=== PATIENT | male | born 1965 | race Caucasian/White ===

== ENCOUNTER → 2016-11-25 | Outpatient (CLI) | payer MEDICAID ==
[2016-11-25 08:26] LABS: Basophils # (A) 0.1 k/uL (0-0.2); Basophils % (A) 1 %; CH 31.3; CHCM 35.2; Eosinophils # (A) 0.3 k/uL (0-0.7); Eosinophils % (A) 5 %; HCT 47.6 % (39.0-53.0); HDW 2.59; HGB 16.6 gm/dL (13.0-17.5); Luc # (Auto) 0.15; Luc % (Auto) 3; Lymphocytes # (A) 1.9 k/uL (1.0-4.8); Lymphocytes % (A) 32 %; MCHC 34.8 g/dL (31.0-37.0); MCV 89.3 fL (80.0-100.0); Mean Platelet Volume 5.9; Monocytes # (A) 0.3 k/uL (0-1.0); Monocytes % (A) 5 %; Neutrophils # (A) 3.2 k/uL (1.3-7.7); Neutrophils % (A) 55 %; RBC 5.34 m/uL (4.30-5.90); RDW 12.5 % (11.5-15.5); WBC 5.8 k/uL (3.8-10.6); WBC (Perox) 6.04
[2016-11-25 08:41] LABS: ALT 29 U/L (21-72); AST 24 U/L (17-59); Alkaline Phosphatase 88 U/L (38-126); Anion Gap 11 mmol/L; Blood Urea Nitrogen 18 mg/dL (9-20); Calcium 9.4 mg/dL (8.4-10.2); Carbon Dioxide 28 mmol/L (22-30); Chloride 105 mmol/L (98-107); Cholesterol 179 mg/dL (<200); Glucose 101 mg/dL (74-99); HDL Cholesterol 59 mg/dL (40-60); Non-African American GFR(MDRD) >60 (>60 ml/min/1.73 sqM); Potassium 4.6 mmol/L (3.5-5.1); Sodium 144 mmol/L (137-145); Total Bilirubin 0.8 mg/dL (0.2-1.3); Total Protein 7.5 g/dL (6.3-8.2); Triglycerides 104 mg/dL (<150)
[2016-11-25 08:47] LABS: Hemoglobin A1C 5.1 % (4.2-6.1)
== END | disposition home or self-care (01) ==
LOC: LABWHC1 08:08
PROVIDERS: ATTEND Nurse Practitioner Family
DX: I48.2 Chronic atrial fibrillation (principal)
CPT/HCPCS: 36415; 80053; 80061; 83036; 84439; 84443; 85025

== ENCOUNTER → 2016-11-25 | Outpatient (CLI) | payer MEDICAID ==
--- NOTE | 2016-11-25 12:31 | US ---
EXAMINATION TYPE: US abdomen comp/pelvis limited DATE OF EXAM: 11/25/2016 10:49 AM COMPARISON: NONE CLINICAL HISTORY: R30.0 Dysuria. History of kidney stones, hematuria, lower back pain, history or cho lecystectomy EXAM MEASUREMENTS: Liver Length: 13.7 cm Gallbladder Wall: surgically absent CBD: 0.4 cm Spleen: 12.1 cm Right Kidney: 11.3 x 5.7 x 5.7 cm Left Kidney: 11.4 x 6.7 x 5.8 cm Pancreas: obscured by overlying midline bowel gas Liver: slightly course echogenicity Gallbladder: surgically absent CBD: visualized portions wnl, partially obscured by overlying bowel gas Spleen: visualized portions wnl, limited by rib shadowing and overlying bowel gas Right Kidney: visualized portions wnl, limited by rib shadowing and overlying bowel gas Left Kidney: multiple small echogenic foci throughout, 3.0 x 2.6 x 2.4cm hypoechoic area superior po le Upper IVC: wnl Abd Aorta: visualized portions wnl, partially obscured by overlying midline bowel gas Bladder: wnl Bilateral Jets Seen yes IMPRESSION: 1. Exam is limited by bowel gas. 2. Left renal calculi are identified. There is a superior pole left renal cyst.
== END | disposition home or self-care (01) ==
LOC: RADUSWWP 10:00
PROVIDERS: ATTEND Internal Medicine
DX: N20.0 Calculus of kidney (principal); N28.1 Cyst of kidney, acquired
CPT/HCPCS: 36415; 76700; 76857; 80053; 80061; 83036; 84439; 84443; 85025

== ENCOUNTER → 2016-12-12 | Outpatient (CLI) | payer MEDICAID ==
--- NOTE | 2016-12-12 10:42 | XR ---
EXAMINATION TYPE: XR IVP DATE OF EXAM ORDERED: 12/12/2016 HISTORY: J28.1 acquired renal cyst. COMPARISON: None. TECHNIQUE: The patient was injected with 100 cc of Omnipaque 350. FINDINGS: There is a 5.4 mm linear density overlying the lower pole left kidney. There is a 3 mm den sity overlying the upper pole of the right kidney. These may represent renal calculi. Following intravenous administration of contrast, there is bilateral excretion. The kidneys are dolores l in size, shape, position and axis. Both the intrarenal and extrarenal collecting systems are visual ized are unremarkable. The bladder is unremarkable. The patient weighs well with good drainage of the collecting systems bilaterally. IMPRESSION: 1. I CANNOT EXCLUDE TINY, BILATERAL RENAL CALCULI. 2. NORMAL IVP.
== END | disposition home or self-care (01) ==
LOC: RADFLMAIN 08:57
PROVIDERS: ATTEND Internal Medicine
DX: N28.1 Cyst of kidney, acquired (principal); N20.2 Calculus of kidney with calculus of ureter
CPT/HCPCS: 74400; Q9967

== ENCOUNTER 2017-04-24 05:40 | Emergency (ER) | payer MEDICAID ==
[2017-04-24 05:53] VITALS: TEMP 97.8
[2017-04-24] MEDS ORDERED: SODIUM CHLORIDE 0.9% 1,000 ML IV STA (05:54)
[2017-04-24] MEDS ORDERED: ONDANSETRON 4 MG/2 ML VIAL IVP STA (05:54)
[2017-04-24] MEDS ORDERED: KETOROLAC 30 MG/ML 1 ML VIAL IVP STA (05:54)
[2017-04-24] MEDS ORDERED: HYDROmorphone 1 MG/ML 1 ML SYRINGE IVP STA (05:54)
--- NOTE | 2017-04-24 05:56 | ED ---
General Adult HPI - General Source: patient, RN notes reviewed Mode of arrival: ambulatory Limitations: no limitations <Neo Briceño - Last Filed: 04/24/17 06:34> <Benitez Larkin - Last Filed: 04/24/17 07:26> - General Chief complaint: Back Pain/Injury Stated complaint: kidney stones Time Seen by Provider: 04/24/17 05:40 - History of Present Illness Initial comments: This is a 51-year-old male who presents emergency department with past history is significant for kidney stones atrial fibrillation and sick cholesterol. Patient comes in today because he is had about 2 hours of right back pain and right flank pain. Patient states it's very reminiscent of his previous kidney stone pain. Patient states she's nauseated and had some dry heaves earlier. Patient denies any radiation of the pain to the abdomen with the groin. Patient denies any hematuria or urinary frequency or urgency. Patient denies any fever chills. Patient denies any injury to his lower back. Patient states that movement does not make it worse. (Neo Briceño) - Related Data Previous Rx's Medication Instructions Recorded HYDROcodone/APAP 5-325MG [[place] 1 tab PO Q6HR PRN #12 tab 04/24/17 5-325] Ibuprofen [Motrin] 600 mg PO Q8HR PRN #24 tab 04/24/17 Ondansetron Odt [Zofran Odt] 4 mg PO Q8HR PRN #10 tab 04/24/17 Allergies Allergy/AdvReac Type Severity Reaction Status Date / Time No Known Allergies Allergy Verified 04/24/17 05:53 Review of Systems ROS Other: All systems not noted in ROS Statement are negative. <Neo Briceño - Last Filed: 04/24/17 06:34> ROS Other: All systems not noted in ROS Statement are negative. <Benitez Larkin - Last Filed: 04/24/17 07:26> ROS Statement: Those systems with pertinent positive or pertinent negative responses have been documented in the HPI. Past Medical History Past Medical History: Atrial Fibrillation, Hyperlipidemia Additional Past Medical History / Comment(s): diverticulosis History of Any Multi-Drug Resistant Organisms: None Reported Past Surgical History: Cholecystectomy Past Psychological History: Anxiety Smoking Status: Current every day smoker Past Alcohol Use History: Occasional Past Drug Use History: None Reported <Neo Briceño - Last Filed: 04/24/17 06:34> General Exam Limitations: no limitations <Neo Briceño - Last Filed: 04/24/17 06:34> <Benitez Larkin - Last Filed: 04/24/17 07:26> - General Exam Comments Initial Comments: GENERAL: Patient is well-developed and well-nourished. Patient is nontoxic and well- hydrated and is in moderate distress. ENT: Oropharynx is clear. Moist mucous membranes. EYES: The sclera were anicteric and conjunctiva were pink and moist. Extraocular movements were intact and pupils were equal round and reactive to light. Eyelids were unremarkable. PULMONARY: Unlabored respirations. Good breath sounds bilaterally. No audible rales rhonchi or wheezing was noted. CARDIOVASCULAR: There is a regular rate and rhythm without any murmurs gallops or rubs. ABDOMEN: Soft and nontender with normal bowel sounds. No palpable organomegaly was noted. There is no palpable pulsatile mass. SKIN: Skin is clear with no lesions or rashes and otherwise unremarkable. NEUROLOGIC: Patient is alert and oriented x3. Cranial nerves II through XII are grossly intact. Motor and sensory are also intact. Normal speech, volume and content. Symmetrical smile. MUSCULOSKELETAL: Normal extremities with adequate strength and full range of motion. LYMPHATICS: No significant lymphadenopathy is noted PSYCHIATRIC: Normal psychiatric evaluation. (Neo Briceño) Medical Decision Making - Lab Data Result diagrams: 04/24/17 05:51 04/24/17 05:51 <Neo Briceño - Last Filed: 04/24/17 06:34> - Lab Data Result diagrams: 04/24/17 05:51 04/24/17 05:51 <Benitez Larkin - Last Filed: 04/24/17 07:26> - Medical Decision Making Dr. Larkin will be taking over the care of this patient at 7 AM (Neo Briceño) Patient's care was signed out at shift change, awaiting CT results. I did reevaluate the patient at sign out. He was having right flank pain radiating to the groin. This is typical of his previous kidney stones. CT shows 2.7 mm renal stone in the distal ureter with mild right hydro-nephrolithiasis. On reevaluation patient is pain-free. He will be given a prescription for pain medication and patient does state he has Flomax at home. He is given a urine strainer. He will follow-up with urology. (Benitez Larkin) - Lab Data Lab Results 04/24/17 04/24/17 04/24/17 Range/Units 05:51 05:51 06:00 WBC 6.3 (3.8-10.6) k/uL RBC 5.19 (4.30-5.90) m/uL Hgb 16.1 (13.0-17.5) gm/dL Hct 45.8 (39.0-53.0) % MCV 88.1 (80.0-100.0) fL MCH 31.0 (25.0-35.0) pg MCHC 35.1 (31.0-37.0) g/dL RDW 12.1 (11.5-15.5) % Plt Count 263 (150-450) k/uL Neutrophils % 57 % Lymphocytes % 29 % Monocytes % 6 % Eosinophils % 4 % Basophils % 1 % Neutrophils # 3.6 (1.3-7.7) k/uL Lymphocytes # 1.8 (1.0-4.8) k/uL Monocytes # 0.4 (0-1.0) k/uL Eosinophils # 0.3 (0-0.7) k/uL Basophils # 0.0 (0-0.2) k/uL Sodium 141 (137-145) mmol/L Potassium 4.2 (3.5-5.1) mmol/L Chloride 105 (98-107) mmol/L Carbon Dioxide 22 (22-30) mmol/L Anion Gap 14 mmol/L BUN 16 (9-20) mg/dL Creatinine 0.82 (0.66-1.25) mg/dL Est GFR (MDRD) Af Amer >60 (>60 ml/min/1.73 sqM) Est GFR (MDRD) Non-Af >60 (>60 ml/min/1.73 sqM) Glucose 97 (74-99) mg/dL Calcium 9.7 (8.4-10.2) mg/dL Total Bilirubin 0.6 (0.2-1.3) mg/dL AST 26 (17-59) U/L ALT 37 (21-72) U/L Alkaline Phosphatase 84 (38-126) U/L Total Protein 7.4 (6.3-8.2) g/dL Albumin 4.5 (3.5-5.0) g/dL Amylase 42 (30-110) U/L Lipase 127 (23-300) U/L Urine Color Yellow Urine Appearance Clear (Clear) Urine pH 5.5 (5.0-8.0) Ur Specific [place] 1.019 (1.001-1.035) Urine Protein 1+ H (Negative) Urine Glucose (UA) Negative (Negative) Urine Ketones 1+ H (Negative) Urine Blood Large H (Negative) Urine Nitrite Negative (Negative) Urine Bilirubin Negative (Negative) Urine Urobilinogen <2.0 (<2.0) mg/dL Ur Leukocyte Esterase Negative (Negative) Urine RBC >182 H (0-5) /hpf Urine WBC <1 (0-5) /hpf Hyaline Casts 5 H (0-2) /lpf Urine Mucus Few H (None) /hpf Urine Yeast (Budding) Moderate H (None) /hpf Disposition <Neo Briceño - Last Filed: 04/24/17 06:34> <Benitez Larkin - Last Filed: 04/24/17 07:26> Clinical Impression: Renal stone, Renal colic, Renal stone Disposition: HOME SELF-CARE Condition: Good Instructions: Kidney Stones (ED) Prescriptions: HYDROcodone/APAP 5-325MG [[place] 5-325] 1 tab PO Q6HR PRN #12 tab PRN Reason: Pain Ibuprofen [Motrin] 600 mg PO Q8HR PRN #24 tab PRN Reason: Pain Ondansetron Odt [Zofran Odt] 4 mg PO Q8HR PRN #10 tab PRN Reason: Vomiting Referrals: Linus Valadez MD [Primary Care Provider] - 1-2 days Kayode Pardo MD [STAFF PHYSICIAN] - 1-2 days
[2017-04-24 06:05] LABS: Basophils % (A) 1 %; CH 31.4; CHCM 35.7; Eosinophils # (A) 0.3 k/uL (0-0.7); Eosinophils % (A) 4 %; HCT 45.8 % (39.0-53.0); HDW 2.64; HGB 16.1 gm/dL (13.0-17.5); Luc # (Auto) 0.19; Luc % (Auto) 3; Lymphocytes # (A) 1.8 k/uL (1.0-4.8); Lymphocytes % (A) 29 %; MCHC 35.1 g/dL (31.0-37.0); MCV 88.1 fL (80.0-100.0); Mean Platelet Volume 6.1; Monocytes # (A) 0.4 k/uL (0-1.0); Monocytes % (A) 6 %; Neutrophils # (A) 3.6 k/uL (1.3-7.7); Neutrophils % (A) 57 %; RBC 5.19 m/uL (4.30-5.90); RDW 12.1 % (11.5-15.5); WBC 6.3 k/uL (3.8-10.6); WBC (Perox) 5.86
[2017-04-24 06:12] LABS: ALT 37 U/L (21-72); AST 26 U/L (17-59); Alkaline Phosphatase 84 U/L (38-126); Amylase 42 U/L (30-110); Anion Gap 14 mmol/L; Blood Urea Nitrogen 16 mg/dL (9-20); Calcium 9.7 mg/dL (8.4-10.2); Carbon Dioxide 22 mmol/L (22-30); Chloride 105 mmol/L (98-107); Glucose 97 mg/dL (74-99); Non-African American GFR(MDRD) >60 (>60 ml/min/1.73 sqM); Potassium 4.2 mmol/L (3.5-5.1); Sodium 141 mmol/L (137-145); Total Bilirubin 0.6 mg/dL (0.2-1.3); Total Protein 7.4 g/dL (6.3-8.2)
[2017-04-24 06:13] LABS: Appearance,Urine Clear (Clear); Bilirubin,Urine Negative (Negative); Glucose,Urine (UA) Negative (Negative); Ketones,Urine 1+ (Negative); Leukocyte Esterase,Urine Negative (Negative); Mucus,Urine Few /hpf; Nitrite,Urine Negative (Negative); PH, Urine 5.5 (5.0-8.0); Particle Count 6443; Protein,Urine 1+ (Negative); RBC,Urine >182 /hpf (0-5); Specific Gravity,Urine 1.019 (1.001-1.035); UA Billing (MACRO vs. MICRO) MICRO; Urobilinogen,Urine <2.0 mg/dL (<2.0); WBC,Urine <1 /hpf (0-5)
[2017-04-24 06:56] VITALS: BP 133/69; PULSE 78; RESP 18
--- NOTE | 2017-04-24 07:07 | XR ---
EXAM: XR Abdomen Complete, 1 View CLINICAL HISTORY: Reason: abdominal pain TECHNIQUE: Upright views of the abdomen/pelvis. COMPARISON: CT abdomen and pelvis performed concurrently. US dated 11/25/16 FINDINGS: Intraperitoneal space: No free air. Gastrointestinal tract: Unremarkable. No dilation. Organs: Cholecystectomy clips. Bones/joints: Unremarkable. Other findings: Right distal ureteral calculus is better seen on CT scan. IMPRESSION: Right distal ureteral calculus is better seen on CT scan.
--- NOTE | 2017-04-24 07:17 | CT ---
EXAM: CT Abdomen and Pelvis Without Intravenous Contrast CLINICAL HISTORY: Reason: abdominal pain TECHNIQUE: Axial computed tomography images of the abdomen and pelvis without intravenous contrast. DLP is 429 mGy-cm. This CT exam was performed using one or more of the following dose reduction techniques: automated exposure control, adjustment of the mA and/or kV according to patient size, and/or use of iterative reconstruction technique. Coronal and sagittal reformatted images were created and reviewed. COMPARISON: KUB performed concurrently. US dated 11/25/16 FINDINGS: Lower thorax: No acute findings. ABDOMEN: Liver: Unremarkable. Gallbladder and bile ducts: Cholecystectomy. No ductal dilation. Pancreas: Unremarkable. No ductal dilation. Spleen: Unremarkable. No splenomegaly. Adrenals: Unremarkable. No mass. Kidneys and ureters: Mild right hydroureteronephrosis with a distal 2. 7 mm calculus. Additional left renal 1.4 mm calculus. Left renal 3.2 cm cyst. Stomach and bowel: Scattered colonic diverticula without diverticulitis. No obstruction. Appendix: No findings to suggest acute appendicitis. PELVIS: Bladder: Unremarkable. No stones. Reproductive: Unremarkable as visualized. ABDOMEN and PELVIS: Intraperitoneal space: Unremarkable. No free air. No significant fluid collection. Bones/joints: Disc disease of L5/S1. No acute fracture. No dislocation. Soft tissues: Unremarkable. Vasculature: Unremarkable. No abdominal aortic aneurysm. Lymph nodes: Unremarkable. No enlarged lymph nodes. IMPRESSION: 1. Mild right hydroureteronephrosis with a distal 2.7 mm calculus. 2. Additional left renal 1.4 mm calculus. Left renal 3.2 cm cyst. 3. Scattered colonic diverticula without diverticulitis.
== END 2017-04-24 07:30 | disposition home or self-care (01) ==
LOC: EC 05:40
DX: N20.0 Calculus of kidney (principal); R11.2 Nausea with vomiting, unspecified; M54.9 Dorsalgia, unspecified; F17.200 Nicotine dependence, unspecified, uncomplicated; Z90.49 Acquired absence of other specified parts of digestive tract
CPT/HCPCS: 99284 ×2; 96374 ×2; 96375 ×3; 96361 ×2; 36415; 80053; 82150; 83690; 85025; 81001; 74000; 74176; J2405; J1885; J1170

== ENCOUNTER 2017-05-02 08:39 | Emergency (ER) | payer MEDICAID ==
[2017-05-02] MEDS ORDERED: SODIUM CHLORIDE 0.9% 1,000 ML IV STA (08:59)
[2017-05-02] MEDS ORDERED: ONDANSETRON 4 MG/2 ML VIAL IVP STA (08:59)
[2017-05-02] MEDS ORDERED: KETOROLAC 30 MG/ML 1 ML VIAL IVP STA (08:59)
[2017-05-02 09:25] LABS: Basophils % (A) 0 %; CH 32.9; CHCM 35.9; Eosinophils # (A) 0.1 k/uL (0-0.7); Eosinophils % (A) 1 %; HCT 45.9 % (39.0-53.0); HDW 2.54; HGB 15.1 gm/dL (13.0-17.5); Luc # (Auto) 0.23; Luc % (Auto) 3; Lymphocytes # (A) 1.4 k/uL (1.0-4.8); Lymphocytes % (A) 17 %; MCH 30.4 pg (25.0-35.0); MCHC 32.9 g/dL (31.0-37.0); MCV 92.3 fL (80.0-100.0); Mean Platelet Volume 6.7; Monocytes # (A) 0.7 k/uL (0-1.0); Monocytes % (A) 8 %; Neutrophils % (A) 71 %; RBC 4.98 m/uL (4.30-5.90); RDW 13.4 % (11.5-15.5); WBC 8.5 k/uL (3.8-10.6); WBC (Perox) 8.57
[2017-05-02 09:33] LABS: Appearance,Urine Clear (Clear); Bilirubin,Urine Negative (Negative); Glucose,Urine (UA) Negative (Negative); Ketones,Urine Negative (Negative); Leukocyte Esterase,Urine Negative (Negative); Mucus,Urine Rare /hpf; Nitrite,Urine Negative (Negative); Particle Count 786; Protein,Urine Negative (Negative); RBC,Urine 2 /hpf (0-5); Specific Gravity,Urine 1.008 (1.001-1.035); UA Billing (MACRO vs. MICRO) MICRO; Urobilinogen,Urine <2.0 mg/dL (<2.0); WBC,Urine 2 /hpf (0-5)
[2017-05-02 09:43] LABS: ALT 35 U/L (21-72); AST 26 U/L (17-59); Alkaline Phosphatase 77 U/L (38-126); Anion Gap 12 mmol/L; Blood Urea Nitrogen 13 mg/dL (9-20); Calcium 9.2 mg/dL (8.4-10.2); Carbon Dioxide 26 mmol/L (22-30); Chloride 100 mmol/L (98-107); Glucose 98 mg/dL (74-99); Non-African American GFR(MDRD) >60 (>60 ml/min/1.73 sqM); Potassium 3.8 mmol/L (3.5-5.1); Sodium 138 mmol/L (137-145); Total Bilirubin 0.7 mg/dL (0.2-1.3); Total Protein 6.9 g/dL (6.3-8.2)
--- NOTE | 2017-05-02 10:14 | US ---
EXAMINATION TYPE: US kidneys/renal and bladder DATE OF EXAM: 05/02/2017 COMPARISON: CT abdomen and pelvis April 24, 2017 CLINICAL HISTORY: Pain. EXAM MEASUREMENTS: Right Kidney: 13.4 x 6.0 x 6.2 cm Left Kidney: 11.9 x 6.0 x 5.3 cm Right Kidney: Left Kidney: There is hypoechoic anechoic oval 4.3 x 2.8 cm lesion centrally left kidney corresponds to simple appearing cyst upper to mid pole level on recent CT. There is 4 mm hyperechoic focus marke d by technologist, no corresponding calculus is seen on CT. Vascular calcification lower pole level i s present. Bladder: Poorly distended and thus suboptimally evaluated. Bilateral Jets seen: No There is no evidence for hydronephrosis at this point in time. No nephrolithiasis is seen. No suspi cious new solid or cystic masses are identified. IMPRESSION: No hydronephrosis or significant new finding is seen to account for patient's symptoms.
--- NOTE | 2017-05-02 10:20 | ED ---
General Adult HPI - General Chief complaint: Urogenital Stated complaint: Poss Kidney Stones, Abd Pain Time Seen by Provider: 05/02/17 08:54 Source: patient, RN notes reviewed Mode of arrival: ambulatory Limitations: no limitations - History of Present Illness Initial comments: 51 yo male presents to the ER with cc of right sided flank pain. At this time the patient was diagnosed by CT with ureteral calculi a few days ago. He states he was doing well he was not using anything but Motrin for pain at home and then last and it flared up. Patient states he has noticed that increased urgency to eat. Patient states he did have some nausea no vomiting. He was concerned due to the pain returning the fact he could not break it with the [place] home so he thought that he should be evaluated. Patient states is not currently having any other symptoms at this time. Patient denies any recent fever, chills, shortness of breath, chest pain, back pain, abdominal pain, nausea vomiting, numbness or tingling, dysuria or hematuria, constipation or diarrhea, headaches or visual changes, or any other current symptoms. - Related Data Home Medications Medication Instructions Recorded Confirmed Atenolol [Tenormin] 12.5 mg PO DAILY 04/24/17 05/02/17 Sertraline [Zoloft] 25 mg PO DAILY 04/24/17 05/02/17 Atorvastatin Calcium [Lipitor] 40 mg PO HS 05/02/17 05/02/17 Tamsulosin [Flomax] 0.4 mg PO ONCE 05/02/17 05/02/17 Previous Rx's Medication Instructions Recorded HYDROcodone/APAP 5-325MG [[place] 1 tab PO Q6HR PRN #12 tab 04/24/17 5-325] Ibuprofen [Motrin] 600 mg PO Q8HR PRN #24 tab 04/24/17 Ondansetron Odt [Zofran Odt] 4 mg PO Q8HR PRN #10 tab 04/24/17 Allergies Allergy/AdvReac Type Severity Reaction Status Date / Time No Known Allergies Allergy Verified 05/02/17 09:18 Review of Systems ROS Statement: Those systems with pertinent positive or pertinent negative responses have been documented in the HPI. ROS Other: All systems not noted in ROS Statement are negative. Past Medical History Past Medical History: Atrial Fibrillation, Hyperlipidemia Additional Past Medical History / Comment(s): diverticulosis, kidney stones History of Any Multi-Drug Resistant Organisms: None Reported Past Surgical History: Cholecystectomy Past Psychological History: Anxiety Smoking Status: Never smoker Past Alcohol Use History: Occasional Past Drug Use History: None Reported General Exam - General Exam Comments Initial Comments: General: The patient is awake and alert, in no distress, and does not appear acutely ill. Eye: Pupils are equal, round and reactive to light, extra-ocular movements are intact; there is normal conjunctiva bilaterally. No signs of icterus. Ears, nose, mouth and throat: There are moist mucous membranes and no oral lesions. Neck: The neck is supple, there is no tenderness. Cardiovascular: There is a regular rate and rhythm. No murmur, rub or gallop is appreciated. Respiratory: Lungs are clear to auscultation, respirations are non-labored, breath sounds are equal. No wheezes, stridor, rales, or rhonchi. Gastrointestinal: Soft, non-distended, non-tender abdomen without masses or organomegaly noted. There is no rebound or guarding present. No CVA tenderness. Bowel sounds are unremarkable. Back: There is no tenderness to palpation in the midline. There is no obvious deformity. No rashes noted. Musculoskeletal: Normal ROM, no tenderness, There is no pedal edema. There is no calf tenderness or swelling. Sensation intact. Pulses equal bilaterally 2+. Neurological: CN II-XII intact, There are no obvious motor or sensory deficits. Coordination appears grossly intact. Speech is normal. Skin: Skin is warm and dry and no rashes or lesions are noted. Psychiatric: Cooperative, appropriate mood & affect, normal judgment. Limitations: no limitations Course Vital Signs 05/02/17 08:47 Temperature 96.9 F L Pulse Rate 71 Respiratory 18 Rate Blood Pressure 177/108 O2 Sat by Pulse 100 Oximetry Medical Decision Making - Medical Decision Making 51-year-old male presents emergency Department chief complaint flank pain. This time ultrasound reviewed and lab work is stable. This time we discussed most likely continued pain from his recent calculi. This time patient will be discharged home. We discussed follow-up return parameters. Patient stated he understood and all questions have been answered. He'll be discharged home. - Lab Data Result diagrams: 05/02/17 09:15 05/02/17 09:15 Lab Results 05/02/17 05/02/17 05/02/17 Range/Units 09:15 09:15 09:15 WBC 8.5 (3.8-10.6) k/uL RBC 4.98 (4.30-5.90) m/uL Hgb 15.1 (13.0-17.5) gm/dL Hct 45.9 (39.0-53.0) % MCV 92.3 (80.0-100.0) fL MCH 30.4 (25.0-35.0) pg MCHC 32.9 (31.0-37.0) g/dL RDW 13.4 (11.5-15.5) % Plt Count 265 (150-450) k/uL Neutrophils % 71 % Lymphocytes % 17 % Monocytes % 8 % Eosinophils % 1 % Basophils % 0 % Neutrophils # 6.0 (1.3-7.7) k/uL Lymphocytes # 1.4 (1.0-4.8) k/uL Monocytes # 0.7 (0-1.0) k/uL Eosinophils # 0.1 (0-0.7) k/uL Basophils # 0.0 (0-0.2) k/uL Sodium 138 (137-145) mmol/L Potassium 3.8 (3.5-5.1) mmol/L Chloride 100 (98-107) mmol/L Carbon Dioxide 26 (22-30) mmol/L Anion Gap 12 mmol/L BUN 13 (9-20) mg/dL Creatinine 1.14 (0.66-1.25) mg/dL Est GFR (MDRD) Af Amer >60 (>60 ml/min/1.73 sqM) Est GFR (MDRD) Non-Af >60 (>60 ml/min/1.73 sqM) Glucose 98 (74-99) mg/dL Calcium 9.2 (8.4-10.2) mg/dL Total Bilirubin 0.7 (0.2-1.3) mg/dL AST 26 (17-59) U/L ALT 35 (21-72) U/L Alkaline Phosphatase 77 (38-126) U/L Total Protein 6.9 (6.3-8.2) g/dL Albumin 4.3 (3.5-5.0) g/dL Urine Color Yellow Urine Appearance Clear (Clear) Urine pH 6.0 (5.0-8.0) Ur Specific [place] 1.008 (1.001-1.035) Urine Protein Negative (Negative) Urine Glucose (UA) Negative (Negative) Urine Ketones Negative (Negative) Urine Blood Small H (Negative) Urine Nitrite Negative (Negative) Urine Bilirubin Negative (Negative) Urine Urobilinogen <2.0 (<2.0) mg/dL Ur Leukocyte Esterase Negative (Negative) Urine RBC 2 (0-5) /hpf Urine WBC 2 (0-5) /hpf Urine Mucus Rare H (None) /hpf - Radiology Data Radiology results: report reviewed, image reviewed Disposition Clinical Impression: Right flank pain Disposition: HOME SELF-CARE Condition: Stable Instructions: Kidney Stones (ED) Additional Instructions: Please use medication as discussed. Please follow up with family doctor if symptoms have not improved over the next two days. Please return to the emergency room if your symptoms increase or worsen or for any other concerns. Referrals: Linus Valadez MD [Primary Care Provider] - 1-2 days Khai Frye MD [STAFF PHYSICIAN] - 1-2 days Time of Disposition: 10:31
[2017-05-02 10:27] VITALS: BP 136/93; PULSE 61; RESP 16; TEMP 97.9
== END 2017-05-02 10:44 | disposition home or self-care (01) ==
LOC: EC 08:39
DX: R10.9 Unspecified abdominal pain (principal); R11.0 Nausea; I48.91 Unspecified atrial fibrillation; E78.5 Hyperlipidemia, unspecified; F41.9 Anxiety disorder, unspecified; Z79.899 Other long term (current) drug therapy; Z90.49 Acquired absence of other specified parts of digestive tract
CPT/HCPCS: 36415; 80053; 85025; 81001; 87086; 76770; 99284; 96374; 96375; 96361 ×2; J2405; J1885

== ENCOUNTER → 2017-06-06 | Outpatient (CLI) | payer MEDICAID ==
--- NOTE | 2017-06-06 11:48 | XR ---
EXAMINATION TYPE: XR hand complete RT DATE OF EXAM: 06/06/2017 CLINICAL HISTORY: pain TECHNIQUE: Frontal, lateral and oblique images of the right hand are obtained. COMPARISON: None. FINDINGS: There is no acute fracture/dislocation evident. The joint spaces appear within normal limi ts. The overlying soft tissue appears unremarkable. IMPRESSION: There is no acute fracture or dislocation ICD 10 NO FRACTURE, INITIAL EVALUATION
== END ==
LOC: RADXRMAIN 11:20
PROVIDERS: ATTEND Internal Medicine Geriatric Medicine
DX: M79.641 Pain in right hand (principal)

== ENCOUNTER → 2019-03-04 | Outpatient (CLI) | payer MEDICAID ==
[2019-03-04 12:52] LABS: Basophils # (A) 0.1 k/uL (0-0.2); Basophils % (A) 1 %; Eosinophils # (A) 0.3 k/uL (0-0.7); Eosinophils % (A) 5 %; HCT 45.2 % (39.0-53.0); HGB 15.6 gm/dL (13.0-17.5); Lymphocytes # (A) 1.7 k/uL (1.0-4.8); Lymphocytes % (A) 28 %; MCH 30.9 pg (25.0-35.0); MCHC 34.6 g/dL (31.0-37.0); MCV 89.3 fL (80.0-100.0); Mean Platelet Volume 6.3; Monocytes # (A) 0.4 k/uL (0-1.0); Monocytes % (A) 6 %; Neutrophils # (A) 3.5 k/uL (1.3-7.7); Neutrophils % (A) 58 %; Platelet Count 256 k/uL (150-450); RBC 5.06 m/uL (4.30-5.90); RDW 13.8 % (11.5-15.5); WBC 6.1 k/uL (3.8-10.6)
[2019-03-04 13:01] LABS: Appearance,Urine Clear (Clear); Bilirubin,Urine Negative (Negative); Blood,Urine Negative (Negative); Color,Urine Light Yellow; Glucose,Urine (UA) Negative (Negative); Ketones,Urine Negative (Negative); Leukocyte Esterase,Urine Negative (Negative); Nitrite,Urine Negative (Negative); Protein,Urine Negative (Negative); Specific Gravity,Urine 1.007 (1.001-1.035); Urobilinogen,Urine <2.0 mg/dL (<2.0)
[2019-03-04 18:54] LABS: African American GFR (CKD) 119.9 (60.0-200.0); Albumin 4.5 g/dL (3.80-4.90); Albumin/Globulin Ratio 2.5 (1.60-3.17); Anion Gap 8.4 mmol/L (4.00-12.00); BUN/Creat Ratio 18.75 Ratio (12.00-20.00); Calcium 9.2 mg/dL (8.7-10.3); Carbon Dioxide 28.6 mmol/L (21.6-31.8); Chol/HDL Ratio 2.77; Globulin 1.8 g/dL (1.6-3.3); Potassium 4.4 mmol/L (3.5-5.5); Total Bilirubin 0.7 mg/dL (0.2-1.2); Total Protein 6.3 g/dL (6.2-8.2); Uric Acid 4.9 mg/dL (3.7-8.7)
== END | disposition home or self-care (01) ==
LOC: LABWHC1 11:46
PROVIDERS: ATTEND Internal Medicine
DX: I10 Essential (primary) hypertension (principal); N40.1 Benign prostatic hyperplasia with lower urinary tract symptoms; E78.2 Mixed hyperlipidemia; F32.9 Major depressive disorder, single episode, unspecified
CPT/HCPCS: 36415; 80053; 80061; 81003; 82550; 83036; 84153; 84439; 84443; 84550; 85025

== ENCOUNTER 2019-05-02 09:49 | Observation (INO) | payer MEDICAID ==
[2019-05-02] MEDS ORDERED: ASPIRIN 81 MG PO STA (10:04)
--- NOTE | 2019-05-02 10:09 | ED ---
Chest Pain HPI - General Source: patient Mode of arrival: ambulatory <Zachary Zayas - Last Filed: 05/02/19 12:03> <Yaima Clarke - Last Filed: 05/07/19 13:06> - General Chief Complaint: Chest Pain Stated Complaint: Chest Pain Time Seen by Provider: 05/02/19 09:56 - History of Present Illness Initial Comments: Patient is a 53-year-old male with history of A. fib is presenting to emergency Department with a chief complaint of chest pain. Patient reports he developed substernal, dull chest pain yesterday appeared to be going away after he ate. Patient reports he woke up this morning and the pain has reappeared and is now radiating to his jaw. Patient also reports left arm pain however he states that has been ongoing for the past several months. Patient does have nausea yesterday but that has since resolved. Patient denies any episodes of diaphoresis. Patient denies shortness of breath or dyspnea on exertion. Patient reports he had an EKG done at his primary care about 2 months ago and it was unremarkable. Patient denies hypertension but does report hypercholesterolemia which is currently treated with medication. Patient does take atenolol for the A. fib. Patient does have a strong family history of early heart attacks. (Zachary Zayas) - Related Data Home Medications Medication Instructions Recorded Confirmed Sertraline [Zoloft] 25 mg PO DAILY 04/24/17 05/02/19 Atorvastatin Calcium [Lipitor] 40 mg PO DAILY 05/02/17 05/02/19 Previous Rx's Medication Instructions Recorded Metoprolol Succinate (ER) [Toprol 12.5 mg PO DAILY #30 tab.er.24h 05/03/19 XL] Allergies Allergy/AdvReac Type Severity Reaction Status Date / Time No Known Allergies Allergy Verified 05/02/19 10:44 Review of Systems ROS Other: All systems not noted in ROS Statement are negative. <Zachary Zayas - Last Filed: 05/02/19 12:03> ROS Other: All systems not noted in ROS Statement are negative. <Yaima Clarke - Last Filed: 05/07/19 13:06> ROS Statement: Those systems with pertinent positive or pertinent negative responses have been documented in the HPI. EKG Findings - EKG Comments: EKG Findings:: Normal sinus rhythm, no ST elevations. Ventricular rate 73, NJ interval 154, QRS duration 88, QT/QTC 390/429. <Zachary Zayas - Last Filed: 05/02/19 12:03> Past Medical History Past Medical History: Atrial Fibrillation, Hyperlipidemia Additional Past Medical History / Comment(s): diverticulosis, kidney stones History of Any Multi-Drug Resistant Organisms: None Reported Past Surgical History: Cholecystectomy Past Psychological History: Anxiety Smoking Status: Never smoker Past Alcohol Use History: Occasional Past Drug Use History: None Reported <Zachary Zayas - Last Filed: 05/02/19 12:03> General Exam Limitations: no limitations General appearance: alert, in no apparent distress Head exam: Present: atraumatic, normocephalic, normal inspection Eye exam: Present: normal appearance, PERRL, EOMI Pupils: Present: normal accommodation ENT exam: Present: normal exam, normal oropharynx, mucous membranes moist, TM's normal bilaterally, normal external ear exam Neck exam: Present: normal inspection, full ROM. Absent: tenderness Respiratory exam: Present: normal lung sounds bilaterally. Absent: chest wall tenderness Cardiovascular Exam: Present: regular rate, normal rhythm, normal heart sounds Extremities exam: Present: normal inspection, full ROM Back exam: Present: normal inspection, full ROM Neurological exam: Present: alert, oriented X3 Psychiatric exam: Present: normal affect, normal mood Skin exam: Present: warm, intact, normal color <Zachary Zayas - Last Filed: 05/02/19 12:03> Course Vital Signs 05/02/19 05/02/19 05/02/19 09:54 10:00 10:11 Temperature 97.7 F Pulse Rate 85 76 Pulse Rate [ 87 [employer] Can [employer]or ] Respiratory 20 13 Rate Blood Pressure 136/99 O2 Sat by Pulse 99 Oximetry 05/02/19 05/02/19 05/02/19 10:28 11:00 12:01 Temperature Pulse Rate 76 70 70 Pulse Rate [ [employer] ] Respiratory 16 8 L 13 Rate Blood Pressure 137/102 151/92 139/101 O2 Sat by Pulse 99 93 L Oximetry 05/02/19 13:00 Temperature Pulse Rate 68 Pulse Rate [ [employer]or ] Respiratory 7 L Rate Blood Pressure 136/95 O2 Sat by Pulse 95 Oximetry Chest Pain MDM - Differential Diagnosis ACS, Pleurisy-Other - Wells Criteria Clinical Symptoms of DVT: (0) No No Alternative Diagnosis: (0) No Immobilization of Surgery in Previous 4 Weeks: (0) No Hemoptysis: (0) No Malignancy: (0) No <Zachary Zayas - Last Filed: 05/02/19 12:03> <Yaima Clarke - Last Filed: 05/07/19 13:06> - [facility] Patient is a 53-year-old male with history of A. fib is presenting to the emergency department with a chief complaint of chest pain. Patient had developed chest pain yesterday that resolved however did appear today again. It is a substernal pain and now radiates to the jaw. Initially patient denied nausea or vomiting however during his ED stay he did develop nausea. Patient was given antiemetics. EKG shows normal sinus rhythm. Initial troponins are negative. The rest of the labs are unremarkable. Chest x-ray is negative for acute cardiopulmonary pathology. Patient has a heart score of 3. Considering the patient is not had any stress testing in over a decade and not see a hub borer for the last several years, elected to admit the patient for observation and serial troponins. Information was relayed to the patient and he is agreeable and understanding. Case discussed with Dr. Clarke. Admitted physician is . Cardiology consulted. (Zachary Zayas) I was available for consultation in the emergency department. The history and physical exam were done by the midlevel provider. I was consulted for this patients care. I reviewed the case with the midlevel provider and based on their presentation of the patient, I agree with the assessment, medical decision making and plan of care as documented. I saw the patient myself and discussed the case with Dr. Valadez. Chart was dictated using [employer] dictation software. Attempts were made to correct any dictation errors however some typographical errors may persist. (Yaima Clarke) Disposition Is patient prescribed a controlled substance at d/c from ED?: No Time of Disposition: 11:43 <Zachary Zayas - Last Filed: 05/02/19 12:03> <Yaima Clarke - Last Filed: 05/07/19 13:06> Clinical Impression: Chest pain Disposition: ADMITTED IP TO THIS HOSP Condition: Good
[2019-05-02] MEDS ORDERED: ONDANSETRON 4 MG/2 ML VIAL IVP STA (10:19)
[2019-05-02 10:37] LABS: Basophils % (A) 1 %; Eosinophils # (A) 0.2 k/uL (0-0.7); Eosinophils % (A) 4 %; HCT 44.9 % (39.0-53.0); Lymphocytes # (A) 1.8 k/uL (1.0-4.8); Lymphocytes % (A) 27 %; MCH 31.6 pg (25.0-35.0); MCHC 35.6 g/dL (31.0-37.0); MCV 88.8 fL (80.0-100.0); Mean Platelet Volume 5.2; Monocytes # (A) 0.3 k/uL (0-1.0); Monocytes % (A) 5 %; Neutrophils % (A) 60 %; Platelet Count 249 k/uL (150-450); RBC 5.05 m/uL (4.30-5.90); RDW 11.8 % (11.5-15.5); WBC 6.6 k/uL (3.8-10.6)
[2019-05-02 10:41] LABS: ALT 25 U/L (21-72); AST 23 U/L (17-59); African American GFR (CKD) >90 (>60 ml/min/1.73 sqM); Albumin 4.4 g/dL (3.5-5.0); Alkaline Phosphatase 79 U/L (38-126); Anion Gap 8 mmol/L; Blood Urea Nitrogen 16 mg/dL (9-20); Calcium 9.4 mg/dL (8.4-10.2); Carbon Dioxide 26 mmol/L (22-30); Chloride 106 mmol/L (98-107); Glucose 98 mg/dL (74-99); INR 0.9 (<1.2); Magnesium 1.9 mg/dL (1.6-2.3); Partial Thromboplastin Time 24.2 sec (22.0-30.0); Potassium 4.4 mmol/L (3.5-5.1); Prothrombin Time 10.2 sec (9.0-12.0); Sodium 140 mmol/L (137-145); Total Bilirubin 0.8 mg/dL (0.2-1.3); Total Protein 7.3 g/dL (6.3-8.2)
--- NOTE | 2019-05-02 10:41 | XR ---
EXAMINATION TYPE: XR chest 2V DATE OF EXAM: 05/02/2019 COMPARISON: 01/01/2009 HISTORY: Shortness of breath TECHNIQUE: Frontal and lateral views of the chest are obtained. FINDINGS: Scattered senescent parenchymal changes noted. Hyperinflation compatible with COPD. No evidence for infiltrate. No evidence for atelectasis. Heart size is stable. Mediastinal structures are stable and grossly unremarkable. No evidence for hilar prominence. Degenerative changes dorsal spine. IMPRESSION: 1. No evidence for acute pulmonary disease.
[2019-05-02] MEDS ORDERED: ONDANSETRON 4 MG/2 ML VIAL IVP PRN (12:35)
[2019-05-02] MEDS ORDERED: MORPHINE SULFATE 4 MG/ML SYRINGE IV PRN (12:35)
[2019-05-02] MEDS ORDERED: NALOXONE 0.4 MG/ML 1 ML VIAL IV PRN (12:35)
[2019-05-02] MEDS ORDERED: ACETAMINOPHEN TAB 325 MG TAB PO PRN (12:35)
[2019-05-02] MEDS ORDERED: ALPRAZolam 0.25 MG TAB PO PRN (12:35)
[2019-05-02] MEDS ORDERED: IBUPROFEN 400 MG TAB PO PRN (12:35)
[2019-05-02] MEDS ORDERED: HYDROmorphone 0.5 MG/0.5 ML SYRINGE IVP PRN (12:35)
[2019-05-02 12:56] VITALS: BMI 28.8
[2019-05-02] MEDS ORDERED: INFLUENZA VACCINE (6 MOS+) 60 MCG/0.5 ML SYRINGE IM ONE (12:58)
--- NOTE | 2019-05-02 14:18 | P.HPIM ---
History of Present Illness H&P Date: 05/02/19 Chief Complaint: Chest pain This is a 53-year-old male patient of Dr. Valadez with a past history of hyperlipidemia hypertension, recurrent depression. Patient has plan for outpatient stress testing and he ended up calling the office yesterday to get this appointment set up as he has had chest pain on and off for several months. 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 During the night he developed nausea and seemed like he was burping a lot. At 2 and the morning he was not feeling well with nausea. At 6 AM he was having heaviness in the left side of his jobs that woke him up. His thought he looked pale. He does have pain in bilateral arms which he states he has had in the past and is more of a chronic issue. His convinced him to come into the emergency center for evaluation. He denies any chest wall tenderness and no pain with deep inspiration. He had nausea without vomiting. He continued to have nausea once he arrived to Hospital but was improved with Zofran. Patient came into [facility] emergency center for evaluation. Acute ST-T wave changes. Initial blood pressure 137/102, afebrile, heart rate 76, pulse ox 99% on room air. CBC and CMP unremarkable. Troponin negative on initial draw. Patient was placed on the observation unit, serial troponins, echocardiogram and cardiology consult requested. Review of Systems Constitutional: Reports fatigue, Reports poor appetite, Denies anorexia, Denies chills, Denies fever, Denies weight loss Eyes: denies blurred vision, denies pain Ears, nose, mouth and throat: Denies dysphagia, Denies nasal congestion, Denies nasal discharge, Denies vertigo Cardiovascular: Reports chest pain, Denies edema, Denies leg edema, Denies lightheadedness, Denies palpitations, Denies shortness of breath, Denies syncope Respiratory: Denies cough, Denies cough with sputum, Denies dyspnea, Denies exc essive sputum, Denies hemoptysis, Denies home oxygen, Denies wheezing Gastrointestinal: Reports loss of appetite, Reports nausea, Denies abdominal pain, Denies constipation, Denies diarrhea, Denies vomiting Genitourinary: Denies dysuria, Denies urinary frequency, Denies urinary retention Musculoskeletal: Denies frequent falls, Denies gait dysfunction, Denies muscle weakness, Denies myalgias Integumentary: Denies pruritus, Denies rash, Denies wounds Neurological: Denies change in mentation, Denies change in speech, Denies numbness, Denies weakness Psychiatric: Denies anxiety, Denies depression Endocrine: Denies fatigue, Denies weight change Past Medical History Past Medical History: Hyperlipidemia Additional Past Medical History / Comment(s): diverticulosis, kidney stones History of Any Multi-Drug Resistant Organisms: None Reported Past Surgical History: Cholecystectomy Past Psychological History: Anxiety Smoking Status: Never smoker Past Alcohol Use History: Occasional Additional Past Alcohol Use History / Comment(s): Patient has been a lifelong nonsmoker, no illicit drug use, no marijuana use. He uses alcohol occasionally. He lives at home with his . Past Drug Use History: None Reported - Past Family History Father Family Medical History: Myocardial Infarction ([place]) Additional Family Medical History / Comment(s): Father at the age of 42 from a [place]. Mother Family Medical History: Cancer Additional Family Medical History / Comment(s): Mother is alive at age 76 with history of hypertension and breast cancer. Sister(s) Family Medical History: Hypertension Additional Family Medical History / Comment(s): Pt has 2 sisters with HTN. Brother(s) Family Medical History: Hypertension Additional Family Medical History / Comment(s): Pt has one brother with HTN. Son(s) Additional Family Medical History / Comment(s): Patient has 2 sons and one daughter with no major medical problems. Medications and Allergies Home Medications Medication Instructions Recorded Confirmed Type Atenolol [Tenormin] 12.5 mg PO DAILY 04/24/17 05/02/19 History Sertraline [Zoloft] 25 mg PO DAILY 04/24/17 05/02/19 History Atorvastatin Calcium [Lipitor] 40 mg PO DAILY 05/02/17 05/02/19 History Allergies Allergy/AdvReac Type Severity Reaction Status Date / Time No Known Allergies Allergy Verified 05/02/19 10:44 Physical Exam Vitals: Vital Signs Temp Pulse Pulse Resp BP Pulse Ox 05/02/19 10:28 76 16 137/102 99 05/02/19 10:00 87 05/02/19 09:54 97.7 F 85 20 136/99 99 Intake and Output 05/01/19 05/02/19 05/02/19 22:59 06:59 14:59 Other: Weight 86.183 kg Gen: This is a 53-year-old male. Patient is resting in the ER stretcher and appears to be comfortable and in no acute distress. HEENT: Head is atraumatic, normocephalic. Pupils equal, round. Sclerae is anicteric. NECK: Supple. No JVD. No lymphadenopathy. No thyromegaly. LUNGS: Clear to auscultation. No wheezes or rhonchi. No intercostal retractions. HEART: Regular rate and rhythm. No murmur. No chest wall tenderness. ABDOMEN: Soft. Bowel sounds are present. No masses. No tenderness. EXTREMITIES: No pedal edema. No calf tenderness. Dorsalis pedis +2 bilaterally. NEUROLOGICAL: Patient is awake, alert and oriented x3. Cranial nerves 2 through 12 are grossly intact. Results CBC & Chem 7: 05/02/19 10:05 05/02/19 10:05 Thrombosis Risk Factor Assmnt - DVT/VTE Prophylaxis DVT/VTE Prophylaxis: Mechanical Prophylaxis ordered Assessment and Plan Plan: 1. Chest pain with radiation into his neck and nausea. Serial troponins, echocardiogram, cardiology consult. Continue aspirin, morphine as needed. 2. Hyperlipidemia. Continue atorvastatin 40 mg daily. 3. Hypertension. Continue atenolol 12.5 mg daily. 4. DVT prophylaxis. Patient will be placed on the observation unit. Discharge plan: Return home Impression and plan of care have been directed as dictated by the signing physician. Piper Sotelo nurse practitioner acting as scribe for signing physician.
[2019-05-03] MEDS ORDERED: ATORVASTATIN 80 MG TAB PO STA (07:28)
[2019-05-03] MEDS ORDERED: ASPIRIN 325 MG TAB PO STA (07:28)
[2019-05-03] MEDS ORDERED: NITROGLYCERIN SL TABS 0.4 MG TAB SUBLINGUAL PRN (07:28)
[2019-05-03] MEDS ORDERED: LIDOCAINE 1% INJ 10MG/ML (20 ML MDV) ONE (08:33)
[2019-05-03] MEDS ORDERED: VERAPAMIL 2.5 MG/ML 2 ML AMP ONE (08:33)
[2019-05-03] MEDS ORDERED: fentaNYL (PF) 50 MCG/ML 2 ML AMP ONE (08:33)
[2019-05-03] MEDS ORDERED: HEPARIN SODIUM 1,000 UN/ML (10ML VL) ONE (08:34)
[2019-05-03] MEDS ORDERED: IV FLUID CONTINUATION 1,000 ML IV ONE (08:50)
[2019-05-03] MEDS ORDERED: MIDAZOLAM 2 MG/2 ML VIAL IV ONE (08:59)
[2019-05-03] MEDS ORDERED: fentaNYL (PF) 50 MCG/ML 2 ML AMP IV ONE (08:59)
[2019-05-03] MEDS ORDERED: ATENOLOL 25 MG TAB PO SCH (09:00)
[2019-05-03] MEDS ORDERED: SERTRALINE 25 MG TAB PO SCH (09:00)
[2019-05-03] MEDS ORDERED: ATORVASTATIN 40 MG TAB PO SCH (09:00)
[2019-05-03] MEDS ORDERED: LIDOCAINE 1% INJ 10MG/ML (20 ML MDV) SQ ONE (09:02)
[2019-05-03] MEDS ORDERED: VERAPAMIL SYRINGE (5 MG/10 ML) INTRAARTER ONE (09:04)
[2019-05-03] MEDS ORDERED: HEPARIN SODIUM 1,000 UN/ML (10ML VL) IV ONE (09:06)
[2019-05-03] MEDS ORDERED: IOPAMIDOL-370 125ML BTL INJ ONE (09:17)
--- NOTE | 2019-05-03 09:27 | P.CRDCN ---
History of Present Illness History of present illness: This is a pleasant 53-year-old male past medical history significant for paroxysmal atrial fibrillation, hypertension, dyslipidemia, heavy alcohol use every weekend and significant family history for premature coronary artery disease. His father in his early 40s secondary to heart disease. He has never undergone cardiac catheterization. He states approximate 14 years ago he was diagnosed with paroxysmal atrial fibrillation and underwent a full cardiac evaluation including a stress test and echocardiogram. Exact records are unavailable however the patient states everything was normal and unremarkable. He states initially he did not have many symptoms attributed to atrial fibrillation however the previous year he can feel his heart racing much more frequent recently especially when he is fatigued. He states were the previous 4-5 months he has noticed arm discomfort. He wakes up in the morning and specifically his left arm feels extremely heavy and then the right arm later in the day starts to hurt as well. He states it feels like he's worked out exc essively. Throughout the day this discomfort is improved. 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 This was brief and lasted for less than 5 minutes. There is no radiation to the arm, back, neck or jaw. There is no associated symptoms. He went home and ate dinne r around 9:30 and then around 2 AM he woke up feeling nauseated, diaphoretic and vomited. He states he this was going on for most of the night. No further symptoms of chest pain. Seen and examined sitting up in bed in no acute distress. EKG reveals sinus mechanism with no acute ST or T wave abnormalities noted. Chest x-ray is negative for acute cardiopulmonary process. Laboratory data reviewed, CBC unremarkable, sodium 140, potassium 4.4, creatinine 0.81, troponin negative 1, magnesium 1.9. Daily cardiac medications include atenolol and atorvastatin. At the time of my exam: CONSTITUTIONAL: Denies fever. Denies chills. EYES: Denies blurred vision. Denies vision changes. Denies eye pain. EARS, NOSE, MOUTH & THROAT: Denies headache. Denies sore throat. Denies ear pain. CARDIOVASCULAR: Denies chest pain. Denies shortness of breath. Denies orthopnea. Denies PND. Denies palpitations. RESPIRATORY: Denies cough. GASTROINTESTINAL: Denies abdominal pain. Denies diarrhea. Denies constipation. Denies nausea. Denies vomiting. MUSCULOSKELETAL: Denies myalgias. INTEGUMENTARY: Denies pruitis. Denies rash. NEUROLOGIC: Denies numbness. Denies tingling. Denies weakness. PSYCHIATRIC: Denies anxiety. Denies depression. ENDOCRINE: Denies fatigue. Denies weight change. Denies polydipsia. Denies p olyurina. GENITOURINARY: Denies burning, hematuria or urgency with micturation. HEMATOLOGIC: Denies history of anemia. Denies bleeding. Blood pressure 123/84 heart rate 63 afebrile and maintaining oxygen saturation on room air GENERAL: This is a 53-year-old male in no apparent distress at the time of my examination. HEENT: Head is atraumatic, normocephalic. Pupils are equal, round. Sclerae anicteric. Conjunctivae are clear. Mucous membranes of the mouth are moist. Neck is supple. There is no jugular venous distention. No carotid bruit is heard. LUNGS: Clear to auscultation no wheezes, rales or rhonchi. No chest wall tenderness is noted on palpation or with deep breathing. HEART: Regular rate and rhythm without murmurs, rubs or gallops. S1 and S2 heard. ABDOMEN: Soft, nontender. Bowel sounds are heard. No organomegaly noted. EXTREMITIES: No evidence of peripheral edema and no calf tenderness noted. VASCULAR: Radial and dorsalis pedis pulses palpated, no evidence of clubbing. NEUROLOGIC: Patient is awake, alert and oriented x3. ASSESSMENT Chest pain suggestive of unstable angina Dyslipidemia Paroxysmal atrial fibrillation Hypertension Significant family history of premature coronary disease PLAN Recommend proceeding with cardiac catheterization. I have discussed the risks, benefits and alternative therapies for the above-mentioned procedure and for both sedation/analgesia as well as necessary blood product administration, if indicated, as they pertain to this patient. The patient has indicated understanding and acceptance of the risks and procedures discussed. Questions have been answered appropriately and he is agreeable for the above stated procedure. NPO after midnight tonight. Obtain 2-D echocardiogram and Doppler study to assess cardiac structure and function. Further recommendations to follow based upon clinical course. Thank you kindly for this consultation. Nurse Practitioner note has been reviewed, I agree with a documented findings and plan of care. Patient was seen and examined. Past Medical History Past Medical History: Hyperlipidemia Additional Past Medical History / Comment(s): diverticulosis, kidney stones History of Any Multi-Drug Resistant Organisms: None Reported Past Surgical History: Cholecystectomy Past Anesthesia/Blood Transfusion Reactions: No Reported Reaction Past Psychological History: Anxiety Smoking Status: Never smoker Past Alcohol Use History: Occasional Additional Past Alcohol Use History / Comment(s): Patient has been a lifelong nonsmoker, no illicit drug use, no marijuana use. He uses alcohol occasionally. He lives at home with his . Past Drug Use History: None Reported - Past Family History Father Family Medical History: Myocardial Infarction ([place]) Additional Family Medical History / Comment(s): Father at the age of 42 from a [place]. Mother Family Medical History: Cancer Additional Family Medical History / Comment(s): Mother is alive at age 76 with history of hypertension and breast cancer. Sister(s) Family Medical History: Hypertension Additional Family Medical History / Comment(s): Pt has 2 sisters with HTN. Brother(s) Family Medical History: Hypertension Additional Family Medical History / Comment(s): Pt has one brother with HTN. Son(s) Additional Family Medical History / Comment(s): Patient has 2 sons and one daughter with no major medical problems. Medications and Allergies Home Medications Medication Instructions Recorded Confirmed Type Atenolol [Tenormin] 12.5 mg PO DAILY 04/24/17 05/02/19 History Sertraline [Zoloft] 25 mg PO DAILY 04/24/17 05/02/19 History Atorvastatin Calcium [Lipitor] 40 mg PO DAILY 05/02/17 05/02/19 History Allergies Allergy/AdvReac Type Severity Reaction Status Date / Time No Known Allergies Allergy Verified 05/02/19 10:44 Physical Exam Vitals: Vital Signs Temp Pulse Pulse Pulse Resp BP BP 05/02/19 13:10 97.4 F L 67 18 125/83 05/02/19 10:28 76 16 137/102 05/02/19 10:00 87 05/02/19 09:54 97.7 F 85 20 136/99 Pulse Ox 05/02/19 13:10 94 L 05/02/19 10:28 99 05/02/19 10:00 05/02/19 09:54 99 Intake and Output 05/01/19 05/02/19 05/02/19 22:59 06:59 14:59 Other: Weight 86.183 kg Results 05/02/19 10:05 05/02/19 10:05 Cardiac Enzymes 05/02/19 05/02/19 Range/Units 10:05 10:05 AST 23 (17-59) U/L Troponin I <0.012 (0.000-0.034) ng/mL Coagulation 05/02/19 Range/Units 10:05 PT 10.2 (9.0-12.0) sec APTT 24.2 (22.0-30.0) sec CBC 05/02/19 Range/Units 10:05 WBC 6.6 (3.8-10.6) k/uL RBC 5.05 (4.30-5.90) m/uL Hgb 16.0 (13.0-17.5) gm/dL Hct 44.9 (39.0-53.0) % Plt Count 249 (150-450) k/uL Comprehensive Metabolic Panel 05/02/19 Range/Units 10:05 Sodium 140 (137-145) mmol/L Potassium 4.4 (3.5-5.1) mmol/L Chloride 106 (98-107) mmol/L Carbon Dioxide 26 (22-30) mmol/L BUN 16 (9-20) mg/dL Creatinine 0.81 (0.66-1.25) mg/dL Glucose 98 (74-99) mg/dL Calcium 9.4 (8.4-10.2) mg/dL AST 23 (17-59) U/L ALT 25 (21-72) U/L Alkaline Phosphatase 79 (38-126) U/L Total Protein 7.3 (6.3-8.2) g/dL Albumin 4.4 (3.5-5.0) g/dL Current Medications Generic Name Dose Route Start Last Admin Trade Name Freq PRN Reason Stop Dose Admin Acetaminophen 650 mg 05/02/19 12:35 Tylenol Tab PO Q6HR PRN Mild Pain or Fever > 100.5 Alprazolam 0.25 mg 05/02/19 12:35 Xanax PO Q6HR PRN Anxiety Atenolol 12.5 mg 05/03/19 09:00 Tenormin PO DAILY [facility] Atorvastatin Calcium 40 mg 05/03/19 09:00 Lipitor PO DAILY [facility] Hydromorphone HCl 0.5 mg 05/02/19 12:35 Dilaudid IVP Q3HR PRN Moderate Pain Ibuprofen 400 mg 05/02/19 12:35 Motrin PO Q6HR PRN Mild Pain or Fever > 100.5 Morphine Sulfate 4 mg 05/02/19 12:35 Morphine Sulfate (Inj) IV Q4HR PRN Severe Pain Naloxone HCl 0.2 mg 05/02/19 12:35 Narcan IV Q2M PRN Opioid Reversal Ondansetron HCl 4 mg 05/02/19 12:35 Zofran IVP Q8HR PRN Nausea And Vomiting Sertraline HCl 25 mg 05/03/19 09:00 Zoloft PO DAILY [facility] Intake and Output 05/01/19 05/02/19 05/02/19 22:59 06:59 14:59 Other: Weight 86.183 kg Patient Weight 05/03/19 06:59 Weight 86.183 kg 05/02/19 10:05 05/02/19 10:05
[2019-05-03] MEDS ORDERED: RX INFO: IV CONTRAST WAS GIVEN 1 EACH MISC MISCELLANE PRN (09:38)
--- NOTE | 2019-05-03 09:44 | P.CARDCATH ---
Date of Procedure: 05/03/19 Preoperative Diagnosis: Recurrent chest and arm pain Postoperative Diagnosis: No coronary artery disease. Myocardial bridging of the mid LAD Procedure(s) Performed: Left heart catheterization without left ventriculography Description of Procedure: HISTORY: This is a 53-year-old gentleman with history of atrial fibrillation who was admitted to the hospital with complaints of recurrent chest pains. His EKGs and cardiac enzymes were negative. Patient was given the option of having cardiac catheterization versus stress test. Patient preferred to have a cardiac catheterization for definitive diagnosis. CONSENT:I have discussed the risks, benefits and alternative therapies for the above-mentioned procedure and for both sedation/analgesia as well as necessary blood product administration, if indicated, as they pertain to this patient. The patient has indicated understanding and acceptance of the risks and procedures discussed. PROCEDURE: Patient was brought to the lab in a fasting state. Patient was given some IV sedation. The right wrist is infiltrated with lidocaine and right radial artery was entered using Seldinger technique. A 6-Bangladeshi catheter was left in place and selective coronary arteriography was performed. Patient tolerated the procedure well. TR band was applied for hemostasis. No immediate complications were noted and patient was transferred to [facility] in a stable condition Conscious Sedation: Versed 1mg Fentanyl 50 g Duration 18 minutes HEMODYNAMICS: The aortic pressure is about 120/70. The left ventricle end- diastolic pressure is 8. There was no gradient across the aortic valve SELECTIVE CORONARY ARTERIOGRAPHY: LEFT MAIN: This is normal in length and patent THE LEFT ANTERIOR DESCENDING CORONARY ARTERY:. This is a fairly caliber vessel giving rise to good-sized 2 diagonal branches and small septal branches. The mid LAD courses intramuscularly suggestive of myocardial bridging. No coronary obstructive disease noted THE LEFT CIRCUMFLEX AND IS CORONARY ARTERY:. This is a good caliber vessel giving rise good-sized OM branch. The circumflex coronary artery and branches are free of occlusive disease THE RIGHT CORONARY ARTERY:. This is a good caliber vessel and dominant in distribution. He did use ice to PDA and PLV branches. The RCA and its branches are free of any occlusive disease FINAL IMPRESSION:. No evidence of coronary artery disease. 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 Medical therapy with beta blockers and this factor modification PROGNOSIS:. good
[2019-05-03 09:45] LABS: Glucose,Whole Blood 94 mg/dL (75-99)
[2019-05-03] MEDS ORDERED: SODIUM CHLORIDE 0.9% 1,000 ML IV SCH (09:45)
[2019-05-03 10:20] VITALS: TEMP 98
[2019-05-03 10:52] LABS: Cholesterol 166 mg/dL (<200); HDL Cholesterol 43 mg/dL (40-60); LDL Cholesterol,Calculated 104 mg/dL (0-99); Triglycerides 94 mg/dL (<150)
[2019-05-03 12:18] VITALS: BP 117/77; PULSE 98; RESP 18
--- NOTE | 2019-05-03 12:56 | P.DS ---
Providers Date of admission: 05/02/19 12:18 Expected date of discharge: 05/03/19 Attending physician: Linus Valadez Consults: 05/02/19 12:35 Consult Physician Stat Consulting Provider: Melissa Ha Consult Reason/Comments: Chest pain Do you want consulting provider notified?: Yes Primary care physician: Linus Valadez [place] [facility] Course: This is a 53-year-old male patient of Dr. Valadez with a past history of hyperlipidemia hypertension, recurrent depression. Patient has plan for outpatient stress testing and he ended up calling the office yesterday to get this appointment set up as he has had chest pain on and off for several months. 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 During the night he developed nausea and seemed like he was burping a lot. At 2 and the morning he was not feeling well with nausea. At 6 AM he was having heaviness in the left side of his jobs that woke him up. His thought he looked pale. He does have pain in bilateral arms which he states he has had in the past and is more of a chronic issue. His convinced him to come into the emergency center for evaluation. He denies any chest wall tenderness and no pain with deep inspiration. He had nausea without vomiting. He continued to have nausea once he arrived to Hospital but was improved with Zofran. Patient came into [facility] emergency center for evaluation. Acute ST-T wave changes. Initial blood pressure 137/102, afebrile, heart rate 76, pulse ox 99% on room air. CBC and CMP unremarkable. Troponin negative on initial draw. Patient was placed on the observation unit, serial troponins, echocardiogram and cardiology consult requested. 05/03: Patient underwent heart catheterization with Dr. Avina that showed a myocardial bridging of the mid LAD. Medical therapy with beta blockers and risk factor modification recommended. Discussed with the patient and his and agreeable to change to Toprol-XL and discontinue atenolol. Patient will be discharged home today in stable condition. Discharge diagnoses: 1. Chest pain with radiation into his neck with nausea most likely secondary to myocardial bridging of the mid LAD. 2. Hyperlipidemia. 3. Hypertension. Note: Patient does state that about 13 years ago he had an episode of atrial fibrillation. He saw Dr. Courtney at that time and was evaluated by Dr. Goodson with no plan for ablation. He feels that he has more palpitations especially when he started. EKGs in the office now shown atrial fibrillation. Discharge plan: Return home Impression and plan of care have been directed as dictated by the signing physician. Piper Sotelo nurse practitioner acting as scribe for signing physician. Patient Condition at Discharge: Good Plan - Discharge Summary Discharge Rx Participant: No New Discharge Prescriptions: New Metoprolol Succinate (ER) [Toprol XL] 12.5 mg PO DAILY #30 tab.er.24h Continue Sertraline [Zoloft] 25 mg PO DAILY Atorvastatin Calcium [Lipitor] 40 mg PO DAILY Discontinued Atenolol [Tenormin] 12.5 mg PO DAILY Discharge Medication List Sertraline [Zoloft] 25 mg PO DAILY 04/24/17 [History] Atorvastatin Calcium [Lipitor] 40 mg PO DAILY 05/02/17 [History] Metoprolol Succinate (ER) [Toprol XL] 12.5 mg PO DAILY #30 tab.er.24h 05/03/19 [Rx] Follow up Appointment(s)/Referral(s): Linus Valadez MD [Primary Care Provider] - 1 Week aNty Avina MD [STAFF PHYSICIAN] - 1 Week Patient Instructions/Handouts: Chest Pain (ED), Heart Catheterization (DC), After Radial Heart Catheterization (GEN) Activity/Diet/Wound Care/Special Instructions: No flexing at the wrist or lifting anything heavier than 5 pounds for 5 days Remove any dressing over puncture site in the 24hours and leave open to air Do not submerge wrist in water for 3 days
[2019-05-04] MEDS ORDERED: METOPROLOL SUCCINATE (ER) 25 MG TAB.ER.24H PO SCH (09:00)
== END 2019-05-03 12:59 | disposition home or self-care (01) ==
LOC: EC 09:49 → 1SOBS 12:18 → 2SICU 05-03 09:21
PROVIDERS: ADMIT Internal Medicine; ATTEND Internal Medicine
DX: R07.89 Other chest pain (principal); R11.2 Nausea with vomiting, unspecified; M79.601 Pain in right arm; M79.602 Pain in left arm; R61 Generalized hyperhidrosis; Q24.5 Malformation of coronary vessels; R07.2 Precordial pain; E78.00 Pure hypercholesterolemia, unspecified; E78.5 Hyperlipidemia, unspecified; I10 Essential (primary) hypertension; I48.0 Paroxysmal atrial fibrillation; F41.9 Anxiety disorder, unspecified; R00.2 Palpitations; F33.9 Major depressive disorder, recurrent, unspecified; Z87.442 Personal history of urinary calculi; Z87.19 Personal history of other diseases of the digestive system; Z79.899 Other long term (current) drug therapy; Z90.49 Acquired absence of other specified parts of digestive tract; Z82.49 Family history of ischemic heart disease and other diseases of the circulatory system; Z80.3 Family history of malignant neoplasm of breast; Z23 Encounter for immunization
CPT/HCPCS: 96374; 99285; 36415; 93005; 93306; 93458; 80061; 80053; 83735; 84484 ×2; 85025; 85610; 85730; 71046; 90686; G0378 ×3; C1769; C1894; G0008; J2250; J2405; J2001; J3010; J1644; Q9967

== ENCOUNTER 2019-05-29 08:57 | Day surgery (SDC) | payer MEDICAID ==
[2019-05-28 08:35] VITALS: BMI 28.4
[~2019-05-29 08:57] MED LIST: LACTATED RINGERS 1,000 ML IV SCH; LIDOCAINE 1% 20 ML VIAL (10MG/ML) FOR IV START INTRADERMA PRN
[2019-05-29 09:27] VITALS: RESP 16; TEMP 97.5
[2019-05-29] MEDS ORDERED: LIDOCAINE 1% INJ 10MG/ML (20 ML MDV) ONE (09:31)
[2019-05-29] MEDS ORDERED: PROPOFOL 10 MG/ML 20 ML VIAL IV ONE (09:31)
--- NOTE | 2019-05-29 09:35 | P.GSHP ---
History of Present Illness H&P Date: 05/29/19 Chief Complaint: colon ca screening Patient here today for screening colonoscopy. He had a previous flexible sigmoidoscopy in his 20s. Was told he had diverticulosis at that time. No bowel complaints. No family history of colon cancer. Past Medical History Past Medical History: Atrial Fibrillation, Asthma, Hyperlipidemia Additional Past Medical History / Comment(s): diverticulitis, kidney stones, allergy induced asthma, "mild cardio bridge" History of Any Multi-Drug Resistant Organisms: None Reported Past Surgical History: Cholecystectomy, Heart Catheterization Past Anesthesia/Blood Transfusion Reactions: No Reported Reaction Smoking Status: Never smoker - Past Family History Father Family Medical History: Myocardial Infarction ([place]) Additional Family Medical History / Comment(s): Father at the age of 42 from a [place]. Mother Family Medical History: Cancer Additional Family Medical History / Comment(s): Mother is alive at age 76 with history of hypertension and breast cancer. Sister(s) Family Medical History: Hypertension Additional Family Medical History / Comment(s): Pt has 2 sisters with HTN. Brother(s) Family Medical History: Hypertension Additional Family Medical History / Comment(s): Pt has one brother with HTN. Son(s) Additional Family Medical History / Comment(s): Patient has 2 sons and one daughter with no major medical problems. Medications and Allergies Home Medications Medication Instructions Recorded Confirmed Type Sertraline [Zoloft] 25 mg PO DAILY 04/24/17 05/29/19 History Atorvastatin Calcium [Lipitor] 40 mg PO DAILY 05/02/17 05/29/19 History Metoprolol Succinate (ER) [Toprol 12.5 mg PO DAILY #30 tab.er.24h 05/03/19 05/29/19 Rx XL] Allergies Allergy/AdvReac Type Severity Reaction Status Date / Time No Known Allergies Allergy Verified 05/29/19 09:15 Surgical - Exam Vital Signs Temp Pulse Resp BP Pulse Ox 97.5 F L 98 16 150/95 95 05/29/19 09:14 05/29/19 09:14 05/29/19 09:14 05/29/19 09:14 05/29/19 09:14 Physical exam: General: Well-developed, well-nourished HEENT: Normocephalic, sclerae nonicteric Abdomen: Nontender, nondistended Extremities: No edema Neuro: Alert and oriented Assessment and Plan (1) Colon cancer screening Narrative/Plan: Will proceed with colonoscopy Current Visit: Yes Status: Acute Code(s): Z12.11 - ENCOUNTER FOR SCREENING FOR MALIGNANT NEOPLASM OF COLON SNOMED Code(s): 947915281
--- NOTE | 2019-05-29 09:45 | P.PCN ---
Date of Procedure: 05/29/19 Procedure(s) Performed: PREOPERATIVE DIAGNOSIS: Colon cancer screening POSTOPERATIVE DIAGNOSIS: Normal exam PROCEDURE: Colonoscopy ANESTHESIA: MAC SURGEON: Noe Carvalho M.D. SPECIMENS: None ENDOSCOPIC PROCEDURE: The patient was placed on the endoscopy table in the left decubitus position. The Olympus colonoscope was inserted into the anus and passed under direct visualization to the base of the cecum. The appendiceal orifice was visualized. From that point the scope was slowly withdrawn inspecti ng all surfaces carefully. There were no neoplastic inflammatory or polypoid lesions throughout the cecum, ascending, transverse, descending, sigmoid and rectum. There was no visible diverticulosis noted. Digital rectal examination was normal. The patient was taken to the recovery room in stable condition per anesthesia guidelines. RECOMMENDATIONS: Increase fiber. Follow-up colonoscopy 10 years.
[2019-05-29 10:09] VITALS: BP 148/95; PULSE 85
== END 2019-05-29 10:35 | disposition home or self-care (01) ==
LOC: ORWHC2ENDO 08:57
PROVIDERS: ATTEND Surgery
DX: Z12.11 Encounter for screening for malignant neoplasm of colon (principal); I48.91 Unspecified atrial fibrillation; J45.909 Unspecified asthma, uncomplicated; I10 Essential (primary) hypertension; E78.5 Hyperlipidemia, unspecified; K57.92 Diverticulitis of intestine, part unspecified, without perforation or abscess without bleeding; Z90.49 Acquired absence of other specified parts of digestive tract; Z82.49 Family history of ischemic heart disease and other diseases of the circulatory system; Z80.3 Family history of malignant neoplasm of breast; Z79.899 Other long term (current) drug therapy
CPT/HCPCS: J2001; J2704; G0121

== ENCOUNTER 2021-10-18 20:56 | Emergency (ER) | payer BC, MEDICAID ==
[2021-10-18 21:30] VITALS: RESP 16; TEMP 98.6
[2021-10-18 23:11] LABS: HCT 45.8 % (39.0-53.0); HGB 15.5 gm/dL (13.0-17.5); MCHC 33.7 g/dL (31.0-37.0); MCV 91.9 fL (80.0-100.0); RBC 4.99 m/uL (4.30-5.90); RDW 12.9 % (11.5-15.5)
[2021-10-18 23:12] LABS: Basophils % (A) 0 %; Eosinophils # (A) 0.2 k/uL (0-0.7); Eosinophils % (A) 2 %; Lymphocytes # (A) 2.4 k/uL (1.0-4.8); Lymphocytes % (A) 30 %; Mean Platelet Volume 6.3; Monocytes # (A) 0.5 k/uL (0-1.0); Monocytes % (A) 7 %; Neutrophils # (A) 4.6 k/uL (1.3-7.7); Neutrophils % (A) 58 %; Platelet Count 282 k/uL (150-450)
[2021-10-18 23:23] LABS: INR 0.9 (<1.2); Partial Thromboplastin Time 22.3 sec (22.0-30.0); Prothrombin Time 10.1 sec (9.0-12.0)
[2021-10-18 23:37] LABS: Calcium 8.9 mg/dL (8.4-10.2); Potassium 4.6 mmol/L (3.5-5.1); Total Protein 6.8 g/dL (6.3-8.2)
[2021-10-18 23:38] LABS: Total Bilirubin 0.6 mg/dL (0.2-1.3)
--- NOTE | 2021-10-19 00:23 | ED ---
Chest Pain HPI - General Chief Complaint: Chest Pain Stated Complaint: Afib, Palpitations, Heart History Time Seen by Provider: 10/19/21 00:12 Source: patient, RN notes reviewed Mode of arrival: ambulatory Limitations: no limitations - History of Present Illness Initial Comments: This is a pleasant 55-year-old male who presents to emergency back complaining of intermittent chest discomfort, palpitations, and recurrent dry cough. Patient was diagnosed with COVID-19 on October 08 while he was vacationing in [place]. Patient went to an urgent care there, tested positive, and was treated with erythromycin and corticosteroids.. Patient does have a history of atrial fibrillation and occasionally will go in and out of this arrhythmia when he is ill. Patient states he had dry cough. No fever. No current chest pain. No headache, no fever or chills, no changes in vision or hearing, no sore throat or difficulty with speech, no neck pain,no shortness of breath, no abdominal pain, no nausea or vomiting, no changes in urination or bowel movements, no numbness or tingling, no extremity pain, no skin rashes or lesions. - Related Data Home Medications Medication Instructions Recorded Confirmed Sertraline [Zoloft] 25 mg PO DAILY 04/24/17 05/29/19 Atorvastatin Calcium [Lipitor] 40 mg PO DAILY 05/02/17 05/29/19 Previous Rx's Medication Instructions Recorded Metoprolol Succinate (ER) [Toprol 12.5 mg PO DAILY #30 tab.er.24h 05/03/19 XL] Allergies Allergy/AdvReac Type Severity Reaction Status Date / Time No Known Allergies Allergy Verified 10/18/21 21:30 Review of Systems ROS Statement: Those systems with pertinent positive or pertinent negative responses have been documented in the HPI. ROS Other: All systems not noted in ROS Statement are negative. EKG Findings - EKG Comments: EKG Findings:: EKG done at 2151 and read by the ED attending physician reveals sinus rhythm with a rate of 79, incomplete right bundle-branch block with RSR pattern in V1 normal intervals. Normal axis. No acute ST or T-wave changes. Past Medical History Past Medical History: Hyperlipidemia Additional Past Medical History / Comment(s): diverticulosis, kidney stones History of Any Multi-Drug Resistant Organisms: None Reported Past Surgical History: Cholecystectomy Past Anesthesia/Blood Transfusion Reactions: No Reported Reaction Past Psychological History: Anxiety Past Alcohol Use History: Occasional Past Drug Use History: None Reported - Past Family History Father Family Medical History: Myocardial Infarction ([place]) Additional Family Medical History / Comment(s): Father at the age of 42 from a [place]. Mother Family Medical History: Cancer Additional Family Medical History / Comment(s): Mother is alive at age 76 with h istory of hypertension and breast cancer. Sister(s) Family Medical History: Hypertension Additional Family Medical History / Comment(s): Pt has 2 sisters with HTN. Brother(s) Family Medical History: Hypertension Additional Family Medical History / Comment(s): Pt has one brother with HTN. Son(s) Additional Family Medical History / Comment(s): Patient has 2 sons and one daughter with no major medical problems. General Exam Limitations: no limitations General appearance: alert, in no apparent distress Head exam: Present: atraumatic, normocephalic, normal inspection Eye exam: Present: normal appearance, PERRL, EOMI. Absent: scleral icterus, conjunctival injection, periorbital swelling ENT exam: Present: normal exam, mucous membranes moist Neck exam: Present: normal inspection. Absent: tenderness, meningismus, lymphadenopathy Respiratory exam: Present: normal lung sounds bilaterally. Absent: respiratory distress, wheezes, rales, rhonchi, stridor Cardiovascular Exam: Present: regular rate, normal rhythm, normal heart sounds. Absent: systolic murmur, diastolic murmur, rubs, gallop, clicks GI/Abdominal exam: Present: soft, normal bowel sounds. Absent: distended, tenderness, guarding, rebound, rigid Extremities exam: Present: normal inspection, full ROM, normal capillary refill. Absent: tenderness, pedal edema, joint swelling, calf tenderness Back exam: Present: normal inspection Neurological exam: Present: alert, oriented X3, CN II-XII intact Psychiatric exam: Present: normal affect, normal mood Skin exam: Present: warm, dry, intact, normal color. Absent: rash Course Vital Signs 10/18/21 10/19/21 21:25 00:44 Temperature 98.6 F Pulse Rate 78 Pulse Rate [ 76 Poll Clerk ] Respiratory 16 Rate Blood Pressure 149/89 O2 Sat by Pulse 95 Oximetry - Reevaluation(s) Reevaluation #1: 10/19/21 01:55 Medical record is reviewed Symptoms are improved here in the emergency department Patient is informed of results and questions answered Patient in no distress Chest Pain MDM - MDM Patient's EKG showed no acute changes. Patient's initial troponin was negative. I suspect the patient's symptomology is related to COVID-19. Patient has no respiratory distress. Does have a dry cough. However the patient did just fly in a plane and of course COVID-19 causes a hypercoagulable state. We'll add on a second troponin and a d-dimer. The case was discussed in detail with ED attending physician. Presentation, findings, treatment plan discussed in detail. Patient was reevaluated prior to discharge and was asymptomatic. Patient had 2 negative troponins here, negative d-dimer, remained in normal sinus rhythm. I'm going to have the patient contact his regular physician tomorrow. Patient possibly could double his metoprolol to 50 mg daily. However we'll have him contact Rory. patient symptomology fits the clinical picture of COVID-19 infection, possible early long haul syndrome. Advised patient to take 81 mg of aspirin per day. Follow-up with your regular physician as directed. Return to the ER immediately if any symptoms worsen, new symptoms arise, or any other problems develop. Disposition Clinical Impression: Atypical chest pain, Palpitations Disposition: HOME SELF-CARE Condition: Good Instructions (If sedation given, give patient instructions): Chest Pain (ED), Heart Palpitations (ED), COVID-19 (Coronavirus Disease 2019) (ED) Additional Instructions: SELF QUARANTINE DISCHARGE: As you are at risk for symptoms due to coronavirus, please stay home and stay away from others as much as possible. Please maintain social distance of 6 feet if possible. You should not return to work until at least 3 days (72 hours) have passed since recovery of symptoms. This defined as resolution of fever without the use of fever reducing medicines and improvement in respiratory symptoms (e.g,, cough, shortness of breath) Isolation can end at least 5 days after symptom onset and after fever ends for 24 hours (without the use of fever-reducing medication) and symptoms are improving, if these people can continue to properly wear a well-fitted mask around others for 5 more days after the 5-day isolation period. If you're still having symptoms at the end of 5 day period, isolate for an additional 5 days. More information about what to do if you are sick can be found on the CDC website at https://www.cdc.gov/coronavirus/2019-ncov/qv-yok-yry-sick/fddmx-oxds-hzly.html Expect the symptoms to last for 7-14 days from onset. Use acetaminophen (Tylenol) as needed for discomfort. You can take a maximum of 1 gram every 6 hours for discomfort, with your total dose in 24 hours not exceeding 4 grams. Be sure to maintain hydration. Drink continuous water and/or items high in vitamin C, such as orange juice and/or lemonade. Unless you have high blood pressure, you may consider Sudafed (which is [id number]) for nasal congestion. I would suggest that a short acting Sudafed rather than the 24 hour Sudafed. For a cough you may take Mucinex or Robitussin. Also consider the use of Vicks Vapor Rub or your chest when you sleep. Use a humidifier that is cleaned frequently, in the bedroom at night. For Nausea /Vomiting/Diarrhea associated with your Illness: o Small frequent sips of room temperature liquids. o Diet: [place] Foods - If you are still experiencing discomfort and/or nausea please slowly advancing your diet using the BRAT Diet = bananas, rice, apples/apple sauce, toast. o With diarrhea avoid any dairy for 48 hours after symptoms resolved. o Continue with activity as tolerated. If your symptoms do get worse and you believe that the upper respiratory infection has developed into something else, such as pneumonia or severe dehydration, please return to the emergency department or follow-up with your primary care. But expect to be symptomatic for the days as indicated above Cardiac regular physician tomorrow for further guidance. Advised daily aspirin 81 mg Is patient prescribed a controlled substance at d/c from ED?: No Referrals: Linus Valadez MD [Primary Care Provider] - 1-2 days Time of Disposition: 01:46
[2021-10-19] MEDS ORDERED: ASPIRIN 81 MG PO STA (00:25)
--- NOTE | 2021-10-19 00:41 | XR ---
EXAMINATION TYPE: XR chest 2V DATE OF EXAM: 10/19/2021 COMPARISON: 05/02/2019 HISTORY: Cough TECHNIQUE: 2 views FINDINGS: Heart and mediastinum are normal. Lungs are clear. Diaphragm is normal. Bony thorax appears normal. IMPRESSION: Normal chest. No change.
[2021-10-19 02:01] VITALS: BP 145/89; PULSE 77
== END 2021-10-19 02:01 | disposition home or self-care (01) ==
LOC: EC 20:56
DX: R00.2 Palpitations (principal); Z82.49 Family history of ischemic heart disease and other diseases of the circulatory system
CPT/HCPCS: 36415; 71046; 80053; 84484; 85025; 85379; 85610; 85730; 93005; 99285

== ENCOUNTER 2022-11-21 07:45 | Observation (INO) | payer BC ==
[2022-11-21] MEDS ORDERED: HEPARIN SODIUM 1,000 UN/ML (10ML VL) IV PRN (08:11)
[2022-11-21] MEDS ORDERED: HEPARIN SODIUM 1,000 UN/ML (10ML VL) IV ONE (08:11)
[2022-11-21] MEDS ORDERED: DILTIAZEM DRIP BOLUS FROM BAG 1 MG SOLN IV ONE (08:11)
[2022-11-21] MEDS ORDERED: HEPARIN SOD,PORK IN 0.45% NACL 25,000 UNIT in 0.45% NACL 1 250ML.BAG IV SCH (08:15)
--- NOTE | 2022-11-21 08:15 | ED ---
General Adult HPI - General Chief complaint: Arrhythmia/Palpitations Stated complaint: afib Time Seen by Provider: 11/21/22 07:56 Source: patient Mode of arrival: ambulatory Limitations: no limitations - History of Present Illness Initial comments: Dictation was produced using [employer] dictation software. please excuse any grammatical, word or spelling errors. Chief Complaint: 56-year-old male presents emergency department with palpit ations History of Present Illness: Patient is a 56-year-old male has past medical history of A. fib. Presents to the emergency department for palpitations that began overnight. He woke up with palpitations. He tried to go to work however started to feel lightheaded and presyncopal. He told his boss", to the emergency department. Patient has history of A. fib. As hospitalized several years ago. He had a short bout of A. fib approximately 6 months ago. Patient takes metoprolol. He does not take any anticoagulation medications. Patient states that he feels like he goes into A. fib if he drinks much caffeine or becomes overtired. Patient has any associated chest pain. The ROS documented in this emergency department record has been reviewed and confirmed by me. Those systems with pertinent positive or negative responses have been documented in the HPI. All other systems are other negative and/or noncontributory. - Related Data Home Medications Medication Instructions Recorded Confirmed Sertraline [Zoloft] 25 mg PO DAILY 04/24/17 05/29/19 Atorvastatin Calcium [Lipitor] 40 mg PO DAILY 05/02/17 05/29/19 Previous Rx's Medication Instructions Recorded Metoprolol Succinate (ER) [Toprol 12.5 mg PO DAILY #30 tab.er.24h 05/03/19 XL] Allergies Allergy/AdvReac Type Severity Reaction Status Date / Time No Known Allergies Allergy Verified 11/21/22 07:55 Review of Systems ROS Statement: Those systems with pertinent positive or pertinent negative responses have been documented in the HPI. ROS Other: All systems not noted in ROS Statement are negative. Past Medical History Past Medical History: Atrial Fibrillation, Hyperlipidemia Additional Past Medical History / Comment(s): diverticulosis, kidney stones History of Any Multi-Drug Resistant Organisms: None Reported Past Surgical History: Cholecystectomy Past Anesthesia/Blood Transfusion Reactions: No Reported Reaction Past Psychological History: Anxiety Smoking Status: Never smoker Past Alcohol Use History: Occasional Past Drug Use History: None Reported - Past Family History Father Family Medical History: Myocardial Infarction ([place]) Additional Family Medical History / Comment(s): Father at the age of 42 from a [place]. Mother Family Medical History: Cancer Additional Family Medical History / Comment(s): Mother is alive at age 76 with history of hypertension and breast cancer. Sister(s) Family Medical History: Hypertension Additional Family Medical History / Comment(s): Pt has 2 sisters with HTN. Brother(s) Family Medical History: Hypertension Additional Family Medical History / Comment(s): Pt has one brother with HTN. Son(s) Additional Family Medical History / Comment(s): Patient has 2 sons and one daughter with no major medical problems. General Exam - General Exam Comments Initial Comments: PHYSICAL EXAM: General Impression: Alert and oriented x3, not in acute distress HEENT: Normocephalic atraumatic, extra-ocular movements intact, pupils equal and reactive to light bilaterally, mucous membranes moist. Cardiovascular: Irregularly irregular Chest: Able to complete full sentences, no retractions, no tachypnea Abdomen: abdomen soft, non-tender, non-distended, no organomegaly Musculoskeletal: Pulses present and equal in all extremities, no peripheral edema Motor: no focal deficits noted Neurological: CN II-XII grossly intact, no focal motor or sensory deficits noted Skin: Intact with no visualized rashes Psych: Normal affect and mood Limitations: no limitations Course Vital Signs 11/21/22 11/21/22 07:52 08:38 Temperature 98 F Pulse Rate 90 116 H Respiratory 22 18 Rate Blood Pressure 132/103 124/87 O2 Sat by Pulse 96 96 Oximetry EKG Findings - EKG Comments: EKG Findings:: My EKG interpretation: Ventricular rate 135, A. fib with RVR, QRS 87, QTc 353. no QTC prolongation, no ST or T-wave changes noted. EKG consistent with A fibrillation with rapid ventricular rate Medical Decision Making - Medical Decision Making Was pt. sent in by a medical professional or institution (, PA, DETECTOR CAR OPERATOR, urgent care, hospital, or skilled nursing...) When possible be specific @ -No Did you speak to anyone other than the patient for history (EMS, parent, family, police, friend...)? What history was obtained from this source @ -No Did you review nursing and triage notes (agree or disagree)? Why? @ -I reviewed and agree with nursing and triage notes Were old charts reviewed (outside hosp., previous admission, EMS record, old EKG, old radiological studies, urgent care reports/EKG's, skilled nursing records)? Report findings @ -Per cardiology notes were reviewed and the patient has history of A. fib. Echo in 2019 showing normal ejection fraction. He had a cardiac cath in April 2019 showing no coronary artery disease. Differential Diagnosis (chest pain, altered mental status, abdominal pain women, abdominal pain men, vaginal bleeding, musculoskeletal, weakness, fever, dyspnea, syncope, headache, dizziness, GI bleed, back pain, seizure, CVA, palpatations, mental health)? @ - Differential Palpitations: Ventricular arrhythmias, atrial arrhythmias, myocardial infarction, anemia, thyrotoxicosis, electrolyte imbalance, hypokalemia, pulmonary embolism, pulmonary disease, drugs, alcohol, anxiety, stress.... This is not meant to be an all-inclusive list. EKG interpreted by me (3pts min.). @ -See above X-rays interpreted by me (1pt min.). @ -Nonacute CT interpreted by me (1pt min.). @ -None done U/S interpreted by me (1pt. min.). @ -None done What testing was considered but not performed or refused? (CT, X-rays, U/S, labs)? Why? @ -None What meds were considered but not given or refused? Why? @ -None Did you discuss the management of the patient with other professionals (professionals i.e. , PA, DETECTOR CAR OPERATOR, lab, RT, psych nurse, social media campaign manager, bulk pigment reducer, teacher, customs officer, case monitor)? Give summary @ -Labs, EKG clinical presentation was discussed with Dr. Valadez for admission Was smoking cessation discussed for >3mins.? @ -No Was critical care preformed (if so, how long)? @ -yes 33 minutes Were there social determinants of health that impacted care today? How? (Homelessness, low income, unemployed, alcoholism, drug addiction, transportation, low edu. Level, literacy, decrease access to med. care, [facility], rehab)? @ -No Was there de-escalation of care discussed even if they declined (Discuss DNR or withdrawal of care, Hospice)? DNR status @ -No What co-morbidities impacted this encounter? (DM, HTN, Smoking, COPD, CAD, Cancer, CVA, ARF, Chemo, Hep., AIDS, mental health diagnosis, sleep apnea, morbid obesity)? @ -None Was patient admitted / discharged? Hospital course, mention meds given and route , prescriptions, significant lab abnormalities, going to OR and other pertinent info. @ - 56-year-old male past medical history A. fib presents to emergency department for palpitations. Vital signs upon arrival shows tachycardia. Patient placed on monitor with ventricular rates measuring between 130 and 155. Patient in rapid ventricular rate. Nonhypertensive. Not hypoxic. Patient does not appear to be any significant distress. Patient on anticoagulation medications. He states that his symptoms likely began while he was sleeping. He does report associated symptoms of presyncope Undiagnosed new problem with uncertain prognosis? @ -No Drug Therapy requiring intensive monitoring for toxicity (Heparin, Nitro, I nsulin, Cardizem)? @ -No Were any procedures done? @ -No Diagnosis/symptom? Acute, or Chronic, or Acute on Chronic? Uncomplicated (without systemic symptoms) or Complicated (systemic symptoms)? @ -1. Acute complicated A. fib with RVR Side effects of treatment? @ -yes Exacerbation, Progression, or Severe Exacerbation? @ -No Poses a threat to life or bodily function? How? (Chest pain, [place], [place], pneumonia, PE, COPD, DKA, ARF, appy, cholecystitis, CVA, Diverticulitis, Homicidal, Suicidal, threat to staff... and all critical care pts) @ -yes - Lab Data Result diagrams: 11/21/22 08:08 11/21/22 08:08 Lab Results 11/21/22 11/21/22 11/21/22 Range/Units 08:08 08:08 08:08 WBC 9.1 (3.8-10.6) k/uL RBC 5.37 (4.30-5.90) m/uL Hgb 16.3 (13.0-17.5) gm/dL Hct 47.2 (39.0-53.0) % MCV 87.9 (80.0-100.0) fL MCH 30.4 (25.0-35.0) pg MCHC 34.6 (31.0-37.0) g/dL RDW 12.6 (11.5-15.5) % Plt Count 294 (150-450) k/uL MPV 6.8 Neutrophils % 65 % Lymphocytes % 21 % Monocytes % 4 % Eosinophils % 6 % Basophils % 0 % Neutrophils # 5.9 (1.3-7.7) k/uL Lymphocytes # 1.9 (1.0-4.8) k/uL Monocytes # 0.4 (0-1.0) k/uL Eosinophils # 0.5 (0-0.7) k/uL Basophils # 0.0 (0-0.2) k/uL PT 10.1 (9.0-12.0) sec INR 0.9 (<1.2) APTT 23.2 (22.0-30.0) sec Sodium 140 (137-145) mmol/L Potassium 4.4 (3.5-5.1) mmol/L Chloride 109 H (98-107) mmol/L Carbon Dioxide 22 (22-30) mmol/L Anion Gap 9 mmol/L BUN 19 (9-20) mg/dL Creatinine 0.95 (0.66-1.25) mg/dL Est GFR (CKD-EPI)AfAm >90 (>60 ml/min/1.73 sqM) Est GFR (CKD-EPI)NonAf >90 (>60 ml/min/1.73 sqM) Glucose 100 H (74-99) mg/dL Calcium 9.0 (8.4-10.2) mg/dL Magnesium 2.0 (1.6-2.3) mg/dL Total Bilirubin 0.4 (0.2-1.3) mg/dL AST 24 (17-59) U/L ALT 25 (4-49) U/L Alkaline Phosphatase 123 (38-126) U/L Troponin I (0.000-0.034) ng/mL Total Protein 7.0 (6.3-8.2) g/dL Albumin 4.2 (3.5-5.0) g/dL 11/21/22 Range/Units 08:08 WBC (3.8-10.6) k/uL RBC (4.30-5.90) m/uL Hgb (13.0-17.5) gm/dL Hct (39.0-53.0) % MCV (80.0-100.0) fL MCH (25.0-35.0) pg MCHC (31.0-37.0) g/dL RDW (11.5-15.5) % Plt Count (150-450) k/uL MPV Neutrophils % % Lymphocytes % % Monocytes % % Eosinophils % % Basophils % % Neutrophils # (1.3-7.7) k/uL Lymphocytes # (1.0-4.8) k/uL Monocytes # (0-1.0) k/uL Eosinophils # (0-0.7) k/uL Basophils # (0-0.2) k/uL PT (9.0-12.0) sec INR (<1.2) APTT (22.0-30.0) sec Sodium (137-145) mmol/L Potassium (3.5-5.1) mmol/L Chloride (98-107) mmol/L Carbon Dioxide (22-30) mmol/L Anion Gap mmol/L BUN (9-20) mg/dL Creatinine (0.66-1.25) mg/dL Est GFR (CKD-EPI)AfAm (>60 ml/min/1.73 sqM) Est GFR (CKD-EPI)NonAf (>60 ml/min/1.73 sqM) Glucose (74-99) mg/dL Calcium (8.4-10.2) mg/dL Magnesium (1.6-2.3) mg/dL Total Bilirubin (0.2-1.3) mg/dL AST (17-59) U/L ALT (4-49) U/L Alkaline Phosphatase (38-126) U/L Troponin I <0.012 (0.000-0.034) ng/mL Total Protein (6.3-8.2) g/dL Albumin (3.5-5.0) g/dL Disposition Clinical Impression: Atrial fibrillation Disposition: ADMITTED IP TO THIS HOSP Condition: Serious Referrals: Linus Valadez MD [Primary Care Provider] - 1-2 days Decision Time: 09:00
[2022-11-21 08:20] LABS: Basophils % (A) 0 %; Eosinophils # (A) 0.5 k/uL (0-0.7); Eosinophils % (A) 6 %; HCT 47.2 % (39.0-53.0); HGB 16.3 gm/dL (13.0-17.5); Lymphocytes # (A) 1.9 k/uL (1.0-4.8); Lymphocytes % (A) 21 %; MCH 30.4 pg (25.0-35.0); MCHC 34.6 g/dL (31.0-37.0); MCV 87.9 fL (80.0-100.0); Mean Platelet Volume 6.8; Monocytes # (A) 0.4 k/uL (0-1.0); Monocytes % (A) 4 %; Neutrophils # (A) 5.9 k/uL (1.3-7.7); Neutrophils % (A) 65 %; Platelet Count 294 k/uL (150-450); RBC 5.37 m/uL (4.30-5.90); RDW 12.6 % (11.5-15.5); WBC 9.1 k/uL (3.8-10.6)
[2022-11-21 08:31] LABS: ALT 25 U/L (4-49); AST 24 U/L (17-59); African American GFR (CKD) >90 (>60 ml/min/1.73 sqM); Albumin 4.2 g/dL (3.5-5.0); Alkaline Phosphatase 123 U/L (38-126); Anion Gap 9 mmol/L; Blood Urea Nitrogen 19 mg/dL (9-20); Carbon Dioxide 22 mmol/L (22-30); Chloride 109 mmol/L (98-107); Glucose 100 mg/dL (74-99); Non-African American GFR(CKD) >90 (>60 ml/min/1.73 sqM); Potassium 4.4 mmol/L (3.5-5.1); Sodium 140 mmol/L (137-145); Total Bilirubin 0.4 mg/dL (0.2-1.3)
[2022-11-21] MEDS: DILTIAZEM 125 MG in SODIUM CHLORIDE 0.9% 100 ML IV SCH (08:32)
[2022-11-21 08:36] LABS: INR 0.9 (<1.2); Partial Thromboplastin Time 23.2 sec (22.0-30.0); Prothrombin Time 10.1 sec (9.0-12.0)
--- NOTE | 2022-11-21 09:16 | XR ---
EXAMINATION TYPE: XR chest 2V DATE OF EXAM: 11/21/2022 COMPARISON: 10/19/2021 INDICATION: Palpitations and dizziness TECHNIQUE: Frontal and lateral views of the chest are obtained. FINDINGS: The heart size is normal. The pulmonary vasculature is normal. The lungs are clear. IMPRESSION: 1. No acute pulmonary process.
[2022-11-21] MEDS ORDERED: NALOXONE 0.4 MG/ML 1 ML VIAL IV PRN (09:36)
[2022-11-21] MEDS ORDERED: ATORVASTATIN 40 MG TAB PO SCH (12:45)
[2022-11-21] MEDS ORDERED: METOPROLOL SUCCINATE (ER) 25 MG TAB.ER.24H PO SCH (12:45)
--- NOTE | 2022-11-21 13:14 | P.CRDCN ---
History of Present Illness History of present illness: HISTORY OF PRESENT ILLNESS: This is a 56-year-old male with a past medical history significant for hyperlipidemia and atrial fibrillation many years ago. Patient does not follow with a handbook writer. We have been asked to see the patient in consultation for atrial fibrillation. Patient examined at the bedside. Patient states he has been feeling palpitations on and off for the past few weeks. He states that they would eventually go away. He states that he went to work today and his palpitations continued and would not stop so he decided to come to the emergency room for further evaluation. The patient states his last known episode of atrial fibrillation was probably 5 or 6 years ago. The patient was found to be in A. fib with RVR. The patient was started on IV Cardizem and IV heparin. At the time of examination, the patient remains in atrial fibrillation with a heart rate in the 90s. The patient is a nonsmoker. He reports occasional alcohol use and states he had a few beers over the weekend. He denies any chest pain or pressure. He denies any shortness of breath. * EKG reveals atrial fibrillation with RVR * Chest xray negative for acute process * Laboratory data: W BC 9.1. Hemoglobin 16.3. Platelet count 294. Sodium 140. Potassium 4.4. BUN 19. Creatinine 0.95. Troponin negative 1. * Current home cardiac medications include metoprolol succinate 25 mg daily and atorvastatin 40 mg daily * Most recent echocardiogram obtained in April 2019 revealing ejection fraction 60-65%, trace MR, mild TR REVIEW OF SYSTEMS: At the time of my exam: CONSTITUTIONAL: Denies fever or chills. HEENT: Denies blurred vision, vision changes, or eye pain. Denies hemoptysis CARDIOVASCULAR: Denies chest pain. Denies orthopnea. Denies PND. Denies palpitations RESPIRATORY: Denies shortness of breath. GASTROINTESTINAL: Denies abdominal pain. Denies nausea or vomiting. HEMATOLOGIC: Denies bleeding disorders. GENITOURINARY: Denies any blood in urine. SKIN: Denies pruitis. Denies rash. PHYSICAL EXAM: VITAL SIGNS: Reviewed. GENERAL: Well-developed in no acute distress. HEENT: Head is normocephalic. Pupils are equal, round. Sclerae anicteric. Mucous membranes of the mouth are moist. Neck supple. No JVD or thyromegaly LUNGS: Respirations even and unlabored. Lungs essentially clear to auscultation bilaterally. HEART: Irregular rate and rhythm. S1 and S2 heard. ABDOMEN: Soft. Nondistended. Nontender. EXTREMITIES: Normal range of motion. No clubbing or cyanosis. Peripheral pulses intact. No lower extremity edema NEUROLOGIC: Awake and alert. Oriented x 3. ASSESSMENT: Palpitations Paroxysmal atrial fibrillation with RVR Hyperlipidemia PLAN: Obtain 2-D echo to assess cardiac structure and function Check TSH Continue home dose of metoprolol succinate 25 mg daily Wean off Cardizem drip as tolerated Discontinue IV heparin. Begin Eliquis 5 mg twice a day If LV function is preserved, will begin Flecanide 50 mg twice a day Nothing by mouth tonight for possible MYLES and cardioversion tomorrow if patient remains in atrial fibrillation Further recommendations pending patient's course Nurse practitioner note has been reviewed by physician. Signing provider agrees with the documented findings, assessment, and plan of care. Past Medical History Past Medical History: Atrial Fibrillation, Hyperlipidemia Additional Past Medical History / Comment(s): diverticulosis, kidney stones History of Any Multi-Drug Resistant Organisms: None Reported Past Surgical History: Cholecystectomy Past Anesthesia/Blood Transfusion Reactions: No Reported Reaction Past Psychological History: Anxiety Smoking Status: Never smoker Past Alcohol Use History: Occasional Past Drug Use History: None Reported - Past Family History Father Family Medical History: Myocardial Infarction ([place]) Additional Family Medical History / Comment(s): Father at the age of 42 from a [place]. Mother Family Medical History: Cancer Additional Family Medical History / Comment(s): Mother is alive at age 76 with history of hypertension and breast cancer. Sister(s) Family Medical History: Hypertension Additional Family Medical History / Comment(s): Pt has 2 sisters with HTN. Brother(s) Family Medical History: Hypertension Additional Family Medical History / Comment(s): Pt has one brother with HTN. Son(s) Additional Family Medical History / Comment(s): Patient has 2 sons and one daughter with no major medical problems. Medications and Allergies Home Medications Medication Instructions Recorded Confirmed Type Sertraline [Zoloft] 25 mg PO DAILY 04/24/17 11/21/22 History Atorvastatin Calcium [Lipitor] 40 mg PO DAILY 05/02/17 11/21/22 History Metoprolol Succinate (ER) [Toprol 25 mg PO DAILY 11/21/22 11/21/22 History XL] Allergies Allergy/AdvReac Type Severity Reaction Status Date / Time No Known Allergies Allergy Verified 11/21/22 07:55 Physical Exam Vitals: Vital Signs Temp Pulse Resp BP Pulse Ox 11/21/22 12:00 88 16 126/81 97 11/21/22 10:00 90 18 110/89 98 11/21/22 09:52 85 18 133/96 96 11/21/22 08:38 116 H 18 124/87 96 11/21/22 07:52 98 F 90 22 132/103 96 Intake and Output 11/20/22 11/21/22 11/21/22 22:59 06:59 14:59 Other: Weight 86.183 kg Results 11/21/22 08:08 11/21/22 08:08 Cardiac Enzymes 11/21/22 11/21/22 Range/Units 08:08 08:08 AST 24 (17-59) U/L Troponin I <0.012 (0.000-0.034) ng/mL Coagulation 11/21/22 Range/Units 08:08 PT 10.1 (9.0-12.0) sec APTT 23.2 (22.0-30.0) sec CBC 11/21/22 Range/Units 08:08 WBC 9.1 (3.8-10.6) k/uL RBC 5.37 (4.30-5.90) m/uL Hgb 16.3 (13.0-17.5) gm/dL Hct 47.2 (39.0-53.0) % Plt Count 294 (150-450) k/uL Comprehensive Metabolic Panel 11/21/22 Range/Units 08:08 Sodium 140 (137-145) mmol/L Potassium 4.4 (3.5-5.1) mmol/L Chloride 109 H (98-107) mmol/L Carbon Dioxide 22 (22-30) mmol/L BUN 19 (9-20) mg/dL Creatinine 0.95 (0.66-1.25) mg/dL Glucose 100 H (74-99) mg/dL Calcium 9.0 (8.4-10.2) mg/dL AST 24 (17-59) U/L ALT 25 (4-49) U/L Alkaline Phosphatase 123 (38-126) U/L Total Protein 7.0 (6.3-8.2) g/dL Albumin 4.2 (3.5-5.0) g/dL Current Medications Generic Name Dose Route Start Last Admin Trade Name Jeremyq PRN Reason Stop Dose Admin Heparin Sodium (Porcine) 0 unit 11/21/22 08:11 Heparin Sodium 1,000 Un/Ml (10ml Vl) IV PER PROTOCOL PRN Low PTT Protocol Heparin Sodium/Sodium Chloride 250 mls @ 9.997 mls/hr 11/21/22 08:15 11/21/22 08:31 25,000 unit/ Sodium Chloride IV 11.6 units/kg/hr .Q24H USMAN 9.997 mls/hr Administration Protocol 11.6 UNITS/KG/HR Diltiazem HCl 125 mg/ Sodium 125 mls @ 10 mls/hr 11/21/22 08:15 11/21/22 08:32 Chloride IV 10 mg/hr .[id number] USMAN 10 mls/hr Administration 10 MG/HR Naloxone HCl 0.2 mg 11/21/22 09:36 Naloxone 0.4 Mg/Ml 1 Ml Vial IV Q2M PRN Opioid Reversal Intake and Output 11/20/22 11/21/22 11/21/22 22:59 06:59 14:59 Other: Weight 86.183 kg Patient Weight 11/22/22 06:59 Weight 86.183 kg 11/21/22 08:08 11/21/22 08:08
--- NOTE | 2022-11-21 14:35 | P.HPIM ---
History of Present Illness H&P Date: 11/21/22 HISTORY OF PRESENT ILLNESS This is a 56-year-old male patient with past medical history of hyperlipidemia, hypertension, paroxysmal atrial fibrillation recurrent depression, patient his history that he has been under a lot of stress and very busy, was trying to jump the car to get it started and developed a sensation that his heart was racing, dizziness. He denies having any chest pain. He also had a sensation that his head was like a balloon. He does relate that on Monday night and Monday he took Zyrtec and was not sure if this was Zyrtec-D or not. He complains of f eeling chronically tired and fatigued. Patient came into [facility] emergency center and was found to be in atrial fibrillation with RVR. Chest x-ray showed no acute findings. WBC 9.1, hemoglobin 16.3, platelet count 294. Sodium 140, potassium 4.4, BUN 19 creatinine 0.95. Troponin negative 1. TSH 1.8. Patient is seen today in the emergency center waiting for a bed on the cardiac stepdown unit. He has been started on heparin drip and Cardizem drip. Heart rate is currently controlled but remains in atrial fibrillation, cardiology on consult. REVIEW OF SYSTEMS Constitutional: No fever, no chills, no night sweats. No weight change. No weakness, reports chronic fatigue denies lethargy. No daytime sleepiness. EENT: No headache. No blurred vision or double vision, no loss of vision. No loss of Hearing, no ringing in the ears, no dizziness. No nasal drainage or congestion. No epistaxis. No sore throat. Lungs: No shortness of breath, reported cough, no sputum production. No wheezing. Cardiovascular: No chest pain, no lower extremity edema. Reported palpitations. No paroxysmal nocturnal dyspnea. No orthopnea. Reported lightheadedness or dizziness. No syncopal episodes. Abdominal: No abdominal pain. No nausea, vomiting. No diarrhea. No constipation. No bloody or tarry stools. No loss of appetite. Genitourinary: No dysuria, increased frequency, urgency. No urinary retention. Musculoskeletal: No myalgias. No muscle weakness, no gait dysfunction, no frequent falls. No back pain. No neck pain. Integumentary: No wounds, no lesions. No rash or pruritus. No unusual bruising. No change in hair or nails. Neurologic: No aphasia. No facial droop. No change in mentation. No head injury. No headache. No paralysis. No paresthesia. Psychiatric: No depression. No anxiety. No mood swings. Endocrine: No abnormal blood sugars. No weight change. No excessive sweating or thirst. No cold intolerance. MEDICAL HISTORY Hyperlipidemia Hypertension Paroxysmal atrial fibrillation Recurrent depression. SURGICAL HISTORY Cholecystectomy. SOCIAL HISTORY Patient is a lifelong nonsmoker, no illicit drug use, no marijuana use. Uses alcohol occasionally. He lives at home with his . FAMILY HISTORY Father at age 42 from myocardial infarction. Mother is alive at age 80 with history of hypertension and breast cancer. Patient has 2 sisters with hypertension one brother with hypertension. Patient has 2 sons and 1 daughter with no major medical problems.. PHYSICAL EXAMINATION Gen: This is a 56-year-old male. He is resting on the ear stretcher and appears to be comfortable and in no acute distress. No acute respiratory distress noted. HEENT: Head is atraumatic, normocephalic. Pupils equal, round. Sclerae is anicteric. NECK: Supple. No JVD. No lymphadenopathy. No thyromegaly. LUNGS: Clear to auscultation. No wheezes or rhonchi. No intercostal retractions. HEART: Regular rate and rhythm. No murmur. ABDOMEN: Soft. Bowel sounds are present. No masses. No tenderness. EXTREMITIES: No pedal edema. No calf tenderness. NEUROLOGICAL: Patient is awake, alert and oriented x3. Cranial nerves 2 through 12 are grossly intact. ASSESSMENT AND PLAN 1. Paroxysmal atrial fibrillation with RVR. Cardiology consult appreciated. Echocardiogram has been ordered. Patient continued on Toprol-XL 25 mg daily, plan to wean off Cardizem drip and discontinue IV heparin. Patient is started eliquis 5 mg twice daily and flecainide 50 g twice daily started. Possible MYLES and cardioversion tomorrow if patient remains in atrial fibrillation. 2. Hypertension. Continue metoprolol. 3. Hyperlipidemia. Continue atorvastatin 40 mg daily. 4. Recurrent depression. Continue Zoloft 25 mg daily. 5. GI prophylaxis. Protonix. 6. DVT prophylaxis. Eliquis. Patient will be admitted to the hospital for a minimum of 2 night stay. DISCHARGE PLAN Return home. Impression and plan of care have been directed as dictated by the signing physician. Piper Sotelo nurse practitioner acting as scribe for signing physician. Past Medical History Past Medical History: Atrial Fibrillation, Hyperlipidemia Additional Past Medical History / Comment(s): diverticulosis, kidney stones History of Any Multi-Drug Resistant Organisms: None Reported Past Surgical History: Cholecystectomy Past Anesthesia/Blood Transfusion Reactions: No Reported Reaction Past Psychological History: Anxiety Smoking Status: Never smoker Past Alcohol Use History: Occasional Past Drug Use History: None Reported - Past Family History Father Family Medical History: Myocardial Infarction (SC) Additional Family Medical History / Comment(s): Father at the age of 42 from a SC. Mother Family Medical History: Cancer Additional Family Medical History / Comment(s): Mother is alive at age 76 with history of hypertension and breast cancer. Sister(s) Family Medical History: Hypertension Additional Family Medical History / Comment(s): Pt has 2 sisters with HTN. Brother(s) Family Medical History: Hypertension Additional Family Medical History / Comment(s): Pt has one brother with HTN. Son(s) Additional Family Medical History / Comment(s): Patient has 2 sons and one daughter with no major medical problems. Medications and Allergies Home Medications Medication Instructions Recorded Confirmed Type Sertraline [Zoloft] 25 mg PO DAILY 04/24/17 11/21/22 History Atorvastatin Calcium [Lipitor] 40 mg PO DAILY 05/02/17 11/21/22 History Apixaban [Eliquis] 5 mg PO BID #60 tab 11/21/22 Rx Metoprolol Succinate (ER) [Toprol 25 mg PO DAILY 11/21/22 11/21/22 History XL] Allergies Allergy/AdvReac Type Severity Reaction Status Date / Time No Known Allergies Allergy Verified 11/21/22 07:55 Physical Exam Vitals: Vital Signs Temp Pulse Resp BP Pulse Ox 11/21/22 12:00 88 16 126/81 97 11/21/22 10:00 90 18 110/89 98 11/21/22 09:52 85 18 133/96 96 11/21/22 08:38 116 H 18 124/87 96 11/21/22 07:52 98 F 90 22 132/103 96 Intake and Output 11/20/22 11/21/22 11/21/22 22:59 06:59 14:59 Other: Weight 86.183 kg Results CBC & Chem 7: 11/21/22 08:08 11/21/22 08:08 Labs: Abnormal Lab Results - Last 24 Hours (Table) 11/21/22 Range/Units 08:08 Chloride 109 H (98-107) mmol/L Glucose 100 H (74-99) mg/dL
[2022-11-21 15:03] LABS: Partial Thromboplastin Time 62.1 sec (22.0-30.0); Prothrombin Time 10.7 sec (9.0-12.0)
[2022-11-21] MEDS: FLECAINIDE 50 MG TAB PO SCH ×2 (15:37→21:51)
[2022-11-21] MEDS: APIXABAN 5 MG TAB PO SCH ×2 (15:37→21:51)
[2022-11-22] MEDS: DILTIAZEM 125 MG in SODIUM CHLORIDE 0.9% 100 ML IV SCH (01:42)
[2022-11-22] MEDS ORDERED: PANTOPRAZOLE 40 MG TABLET PO SCH (07:30)
[2022-11-22] MEDS: APIXABAN 5 MG TAB PO SCH (08:36)
[2022-11-22] MEDS: FLECAINIDE 50 MG TAB PO SCH (08:37)
[2022-11-22] MEDS ORDERED: SERTRALINE 25 MG TAB PO SCH (09:00)
--- NOTE | 2022-11-22 10:44 | CA ---
Transthoracic Echo Report Name: Khai Quinones Age: 56 Gender: M : 1965 Exam Date: 11/21/2022 13:13 Exam Location: [facility] Ht (in): 67 Wt (lb): 190 Ordering Physician: Ingrid Farr Attending/Referring Phys: [id number], Yordan Supervisor Orchard Latesha Laurent RDCS Procedure CPT: Indications: LV function Cardiac Hx: Technical Quality: Fair Contrast 1: Total Dose (mL): Contrast 2: Total Dose (mL): MEASUREMENTS (Male / Female) Normal Values 2D ECHO LV Diastolic Diameter PLAX 3.6 cm 4.2 - 5.9 / 3.9 - 5.3 cm LV Systolic Diameter PLAX 1.7 cm IVS Diastolic Thickness 1.4 cm 0.6 - 1.0 / 0.6 - 0.9 cm LVPW Diastolic Thickness 1.4 cm 0.6 - 1.0 / 0.6 - 0.9 cm LV Relative Wall Thickness 0.8 RV Internal Dim ED PLAX 2.6 cm LA Volume 58.3 cm??? 18 - 58 / 22 - 52 cm??? M-MODE Aortic Root Diameter MM 2.4 cm LA Systolic Diameter MM 4.2 cm LA Ao Ratio MM 1.7 AV Cusp Separation MM 2.0 cm DOPPLER AV Peak Velocity 138.4 cm/s AV Peak Gradient 7.7 mmHg AV Mean Velocity 98.3 cm/s AV Mean Gradient 4.2 mmHg AV Velocity Time Integral 23.2 cm LVOT Peak Velocity 88.1 cm/s LVOT Peak Gradient 3.1 mmHg LVOT Velocity Time Integral 15.5 cm TR Peak Velocity 273.3 cm/s TR Peak Gradient 29.9 mmHg Right Ventricular Systolic Press 33.6 mmHg FINDINGS Left Ventricle Left ventricular cavity size normal. Mildly increased left ventricular wall thickness. Normal left ventricular systolic function with no obvious regional wall motion abnormalities. Left ventricular ejection fraction is estimated at 55 %. Right Ventricle Normal right ventricular size and function. Right ventricular systolic pressure within normal limits. Right Atrium Mild right atrial dilatation. Left Atrium Normal left atrial size. Mitral Valve Structurally normal mitral valve. Trace mitral regurgitation. Aortic Valve Trileaflet aortic valve. No aortic valve stenosis or regurgitation. Tricuspid Valve Structurally normal tricuspid valve. Mild tricuspid regurgitation. Pulmonic Valve Structurally normal pulmonic valve. Trace pulmonic regurgitation. Pericardium No pericardial effusion. Aorta Normal size aortic root and proximal ascending aorta. CONCLUSIONS Normal LV size and systolic function. Mild mitral and tricuspid regurgitation. No pericardial effusion. No significant pulmonary hypertension Previewed by: Dr. Jamee Rubio MD (Electronically Signed) Final Date: 22 Nov 2022 10:44
--- NOTE | 2022-11-22 11:08 | P.PN ---
Subjective Progress Note Date: 11/22/22 HISTORY OF PRESENT ILLNESS: This is a 56-year-old male with a past medical history significant for hyperlipidemia and atrial fibrillation many years ago. Patient does not follow with a senior net c developer. We have been asked to see the patient in consultation for atrial fibrillation. Patient examined at the bedside. Patient states he has been feeling palpitations on and off for the past few weeks. He states that they would eventually go away. He states that he went to work today and his palpitations continued and would not stop so he decided to come to the emergency room for further evaluation. The patient states his last known episode of atrial fibrillation was probably 5 or 6 years ago. The patient was found to be in A. fib with RVR. The patient was started on IV Cardizem and IV heparin. At the time of examination, the patient remains in atrial fibrillation with a heart rate in the 90s. The patient is a nonsmoker. He reports occasional alcohol use and states he had a few beers over the weekend. He denies any chest pain or pressure. He denies any shortness of breath. * EKG reveals atrial fibrillation with RVR * Chest xray negative for acute process * Laboratory data: W BC 9.1. Hemoglobin 16.3. Platelet count 294. Sodium 140. Potassium 4.4. BUN 19. Creatinine 0.95. Troponin negative 1. * Current home cardiac medications include metoprolol succinate 25 mg daily and atorvastatin 40 mg daily * Most recent echocardiogram obtained in April 2019 revealing ejection fraction 60-65%, trace MR, mild TR 11/22/2022 Patient examined this morning at the bedside. Patient denies chest pain or pressure. He denies shortness of breath. Patient has converted to sinus mechanism and is maintaining sinus mechanism this morning. Blood pressure is stable. Echocardiogram completed revealing ejection fraction 55%, trace MR, mild TR. TSH 1.800. PHYSICAL EXAM: VITAL SIGNS: Reviewed. GENERAL: Well-developed in no acute distress. HEENT: Head is normocephalic. Pupils are equal, round. Sclerae anicteric. Mucous membranes of the mouth are moist. Neck supple. No JVD or thyromegaly LUNGS: Respirations even and unlabored. Lungs essentially clear to auscultation bilaterally. HEART: Regular rate and rhythm. S1 and S2 heard. ABDOMEN: Soft. Nondistended. Nontender. EXTREMITIES: Normal range of motion. No clubbing or cyanosis. Peripheral pulses intact. No lower extremity edema NEUROLOGIC: Awake and alert. Oriented x 3. ASSESSMENT: Palpitations Paroxysmal atrial fibrillation with RVR Hyperlipidemia PLAN: Repeat EKG this morning Continue current dose of metoprolol Continue oral anticoagulation Patient is stable for discharge home today from a cardiac standpoint Upon discharge, patient will take Flecanide on a PRN basis Follow up post discharge with Dr. Cox Nurse practitioner note has been reviewed by physician. Signing provider agrees with the documented findings, assessment, and plan of care. Objective - Vital Signs Vital signs: Vital Signs Temp 97.4 F L 11/22/22 08:35 Pulse 74 11/22/22 08:35 Resp 16 11/22/22 08:35 BP 128/87 11/22/22 08:35 Pulse Ox 98 11/22/22 08:35 FiO2 Intake & Output 11/21/22 11/22/22 11/22/22 18:59 06:59 18:59 Intake Total 140.813 540 Balance 140.813 540 Weight 86.183 kg Intake: Intake, IV Titration 140.813 Amount Diltiazem 125 mg In 72.0 Sodium Chloride 0.9% 100 ml @ 10 MG/HR 10 mls/hr IV .[id number] [facility] Rx#: [id number] Heparin Sod,Pork in 0.45% 68.813 NaCl 25,000 unit In 0.45 % NaCl 1 250ml.bag @ 11.6 UNITS/KG/HR 9.997 mls/hr IV .Q24H [facility] Rx#: [id number] Oral 540 Other: Voiding Method Toilet Toilet # Voids 1 - Labs CBC & Chem 7: 11/21/22 08:08 11/21/22 08:08 Labs: Abnormal Lab Results - Last 24 Hours (Table) 11/21/22 Range/Units 14:45 APTT 62.1 H (22.0-30.0) sec
[2022-11-22 12:20] VITALS: BP 132/78; PULSE 81; RESP 18; TEMP 97.8
[2022-11-22] MEDS ORDERED: METOPROLOL SUCCINATE (ER) 25 MG TAB.ER.24H PO SCH (12:45)
[2022-11-22] MEDS ORDERED: ATORVASTATIN 40 MG TAB PO SCH (12:45)
--- NOTE | 2022-11-22 13:32 | P.DS ---
Providers Date of admission: 11/21/22 09:37 Expected date of discharge: 11/22/22 Attending physician: Linus Valadez Consults: 11/21/22 09:36 Consult Physician Routine Consulting Provider: Alonso Cox Consult Reason/Comments: afib rvr Do you want consulting provider notified?: Yes Primary care physician: Linus Valadez [facility] Course: HISTORY OF PRESENT ILLNESS This is a 56-year-old male patient with past medical history of hyperlipidemia, hypertension, paroxysmal atrial fibrillation recurrent depression, patient his history that he has been under a lot of stress and very busy, was trying to jump the car to get it started and developed a sensation that his heart was racing, dizziness. He denies having any chest pain. He also had a sensation that his head was like a balloon. He does relate that on Monday night and Monday he took Zyrtec and was not sure if this was Zyrtec-D or not. He complains of feeling chronically tired and fatigued. Patient came into [facility] emergency center and was found to be in atrial fibrillation with RVR. Chest x-ray showed no acute findings. WBC 9.1, hemoglobin 16.3, platelet count 294. Sodium 140, potassium 4.4, BUN 19 creatinine 0.95. Troponin negative 1. TSH 1.8. Patient is seen today in the emergency center waiting for a bed on the cardiac stepdown unit. He has been started on heparin drip and Cardizem drip. Heart rate is currently controlled but remains in atrial fibrillation, cardiology on consult. 11/22: Patient has been seen by cardiology and started on flecainide yesterday. Patient has converted to a sinus rhythm. Blood pressure 128/87, heart rate in the 70s, afebrile, pulse ox 90% on room air. He has been off Cardizem drip, now on eliquis and Toprol-XL 25 mg daily as well as the flecainide 50 mg every 12 hours. Cardiology has advised to continue eliquis for home Toprol-XL at 25 and flecainide as needed. Patient has been cleared for discharge. Patient is anxious to be going home today. He shouldn't discharged in stable condition. DISCHARGE DIAGNOSES 1. Paroxysmal atrial fibrillation with RVR, converted to sinus rhythm following flecainide administration. 2. Hypertension. 3. Hyperlipidemia. 4. Recurrent depression. DISCHARGE PLAN Return home. Greater than 35 minutes was utilized and coordinating patient's discharge. Impression and plan of care have been directed as dictated by the signing physician. Piper Sotelo nurse practitioner acting as scribe for signing physician. Patient Condition at Discharge: Stable Plan - Discharge Summary Discharge Rx Participant: Yes New Discharge Prescriptions: New Apixaban [Eliquis] 5 mg PO BID #60 tab Flecainide [Tambocor] 50 mg PO Q12HR PRN #180 tab PRN Reason: See Comments Continue Sertraline [Zoloft] 25 mg PO DAILY Atorvastatin Calcium [Lipitor] 40 mg PO DAILY Metoprolol Succinate (ER) [Toprol XL] 25 mg PO DAILY Discharge Medication List Sertraline [Zoloft] 25 mg PO DAILY 04/24/17 [History] Atorvastatin Calcium [Lipitor] 40 mg PO DAILY 05/02/17 [History] Apixaban [Eliquis] 5 mg PO BID #60 tab 11/21/22 [Rx] Metoprolol Succinate (ER) [Toprol XL] 25 mg PO DAILY 11/21/22 [History] Flecainide [Tambocor] 50 mg PO Q12HR PRN #180 tab 11/22/22 [Rx] Follow up Appointment(s)/Referral(s): Linus Valadez MD [Primary Care Provider] - 1 Week Alonso Cox MD [STAFF PHYSICIAN] - 1 Week Discharge Disposition: HOME SELF-CARE
== END 2022-11-22 15:34 | disposition home or self-care (01) ==
LOC: EC 07:45 → INTOOBSV 09:37 → 3SCARD 09:37
PROVIDERS: ADMIT Internal Medicine; ATTEND Internal Medicine
DX: I48.0 Paroxysmal atrial fibrillation (principal); I10 Essential (primary) hypertension; E78.5 Hyperlipidemia, unspecified; K57.90 Diverticulosis of intestine, part unspecified, without perforation or abscess without bleeding; F33.9 Major depressive disorder, recurrent, unspecified; F41.9 Anxiety disorder, unspecified; F43.9 Reaction to severe stress, unspecified; Z79.899 Other long term (current) drug therapy; Z87.442 Personal history of urinary calculi; Z90.49 Acquired absence of other specified parts of digestive tract; Z82.49 Family history of ischemic heart disease and other diseases of the circulatory system; Z80.3 Family history of malignant neoplasm of breast
CPT/HCPCS: 96376; 96368; 96365; 96366; 99291; 36415; 93005; 93306; 80053; 84443; 83735; 84484; 85025; 85610; 85730; 71046; G0378; J1644 ×2

== ENCOUNTER 2024-03-07 12:39 | Emergency (ER) | payer BC ==
[2024-03-07 13:35] LABS: Basophils % (A) 1 %; Eosinophils # (A) 0.1 k/uL (0-0.7); Eosinophils % (A) 2 %; HCT 48.8 % (39.0-53.0); HGB 17.3 gm/dL (13.0-17.5); Lymphocytes # (A) 1.7 k/uL (1.0-4.8); Lymphocytes % (A) 28 %; MCHC 35.5 g/dL (31.0-37.0); MCV 90.2 fL (80.0-100.0); Mean Platelet Volume 7.3; Monocytes # (A) 0.4 k/uL (0-1.0); Monocytes % (A) 6 %; Neutrophils # (A) 3.7 k/uL (1.3-7.7); Neutrophils % (A) 62 %; Platelet Count 347 k/uL (150-450); RBC 5.42 m/uL (4.30-5.90); RDW 12.6 % (11.5-15.5)
[2024-03-07 13:41] LABS: Partial Thromboplastin Time 22.9 sec (22.0-30.0)
[2024-03-07 13:46] LABS: ALT 19 U/L (4-49); AST 23 U/L (17-59); African American GFR (CKD) >90 (>60 ml/min/1.73 sqM); Albumin 4.3 g/dL (3.5-5.0); Alkaline Phosphatase 72 U/L (38-126); Anion Gap 5 mmol/L; Blood Urea Nitrogen 16 mg/dL (9-20); Calcium 9.5 mg/dL (8.4-10.2); Carbon Dioxide 26 mmol/L (22-30); Chloride 109 mmol/L (98-107); Glucose 132 mg/dL (74-99); Non-African American GFR(CKD) >90 (>60 ml/min/1.73 sqM); Potassium 4.2 mmol/L (3.5-5.1); Sodium 140 mmol/L (137-145); Total Bilirubin 0.8 mg/dL (0.2-1.3)
--- NOTE | 2024-03-07 13:59 | XR ---
EXAMINATION TYPE: XR chest 2V DATE OF EXAM: 03/07/2024 COMPARISON: 11/21/2022 HISTORY: 58-year-old male atrial fibrillation, dysrhythmia TECHNIQUE: PA and lateral views FINDINGS: The cardiomediastinal silhouette, aorta, and pulmonary vasculature are within normal limits. Lungs an d pleural spaces are clear. Cholecystectomy clips. IMPRESSION: No acute cardiopulmonary process.
--- NOTE | 2024-03-07 14:19 | ED ---
Arrhythmia/Palpitations HPI - General Chief Complaint: Arrhythmia/Palpitations Stated Complaint: afib Time Seen by Provider: 03/07/24 13:09 Source: patient Mode of arrival: ambulatory Limitations: no limitations - History of Present Illness Initial Comments: Patient is a 58-year-old male past medical history of atrial fibrillation presenting for palpitations. Patient states that he has episodes of palpitation today when he becomes overheated or is under stress or drinks alcohol. States no alcohol consumption since last weekend. 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 Palpitations began last night and have occurred on and off throughout the morning. At 1 point his heart rate reached 171 bpm which prompted him to present to the ER. Palpitations have now resolved denies any chest pain or shortness of breath. States that he does feel tired which is normal for him after episodes of a fib. - Related Data Home Medications Medication Instructions Recorded Confirmed Sertraline [Zoloft] 25 mg PO DAILY 04/24/17 03/07/24 Atorvastatin Calcium [Lipitor] 40 mg PO DAILY 05/02/17 03/07/24 Metoprolol Succinate (ER) [Toprol 25 mg PO DAILY 11/21/22 03/07/24 XL] Aspirin 81 mg PO DAILY 03/07/24 03/07/24 Previous Rx's Medication Instructions Recorded Flecainide [Tambocor] 50 mg PO Q12HR PRN #180 tab 11/22/22 Flecainide [Tambocor] 50 mg PO Q12HR 7 Days #14 tablet 03/07/24 Allergies Allergy/AdvReac Type Severity Reaction Status Date / Time No Known Allergies Allergy Verified 03/07/24 16:07 Review of Systems ROS Statement: Those systems with pertinent positive or pertinent negative responses have been documented in the HPI. ROS Other: All systems not noted in ROS Statement are negative. Past Medical History Past Medical History: Atrial Fibrillation, Hyperlipidemia Additional Past Medical History / Comment(s): diverticulosis, kidney stones History of Any Multi-Drug Resistant Organisms: None Reported Past Surgical History: Cholecystectomy Past Anesthesia/Blood Transfusion Reactions: No Reported Reaction Past Psychological History: Anxiety Smoking Status: Never smoker Past Alcohol Use History: Occasional Past Drug Use History: None Reported - Past Family History Father Additional Family Medical History / Comment(s): Father at the age of 42 from a NE. Mother Family Medical History: Cancer Additional Family Medical History / Comment(s): Mother is alive at age 76 with history of hypertension and breast cancer. Sister(s) Family Medical History: Hypertension Additional Family Medical History / Comment(s): Pt has 2 sisters with HTN. Brother(s) Family Medical History: Hypertension Additional Family Medical History / Comment(s): Pt has one brother with HTN. Son(s) Additional Family Medical History / Comment(s): Patient has 2 sons and one daughter with no major medical problems. General Exam - General Exam Comments Initial Comments: PE: CONSTITUTIONAL: No apparent distress, well appearing SKIN: Warm, dry, no jaundice, hives or petechiae EYES: Pupils are equally round, extraocular movements intact without nystagmus, clear conjunctiva, non-icteric sclera HENT: Normocephalic, atraumatic, moist mucus membranes, oropharynx clear without exudates NECK: , Full range of motion, normal appearance PULMONARY: Clear to auscultation without wheezes, rhonchi, or rales, normal excursion, no accessory muscle use and no stridor CARDIOVASCULAR: Regular rate, rhythm, normal S1 and S2. No appreciated murmurs, rubs or gallops. Strong radial pulses with intact distal perfusion. No lower extremity edema GASTROINTESTINAL: Soft, non-tender, non-distended, no palpable masses, no rebound or guarding. No hepatosplenomegaly GENITOURINARY: MUSCULOSKELETAL: Extremities have no gross deformity, no edema, redness, or swelling. No calf swelling NEUROLOGIC:_a/o x 3, GCS 15, normal mentation and speech. Moves all extremities x 4 without motor or sensory deficit PSYCHIATRIC:_normal mood and affect, thought process is clear and linear Limitations: no limitations Course Vital Signs 03/07/24 03/07/24 03/07/24 12:48 14:15 19:45 Temperature 98.2 F 97.9 F Pulse Rate 109 H 76 78 Pulse Rate [ 67 Mobile Application Engineer ] Respiratory 18 17 16 Rate Blood Pressure 120/89 135/81 138/100 O2 Sat by Pulse 99 99 98 Oximetry EKG Findings - EKG Comments: EKG Findings:: Sinus rhythm, 97 bpm, IN interval 143 ms, QRS duration 93 ms, QT/QTc 339/394, no ST elevations or depressions, no arrhythmia Medical Decision Making - Medical Decision Making Was pt. sent in by a medical professional or institution ([facility]ENE Bagley, HALF SECTION IRONER, urgent care, hospital, or intermediate...) When possible be specific @ -No Did you speak to anyone other than the patient for history (EMS, parent, family, police, friend...)? What history was obtained from this source @ -No Did you review nursing and triage notes (agree or disagree)? Why? @ -I reviewed and agree with nursing and triage notes Differential Diagnosis (chest pain, altered mental status, abdominal pain women, abdominal pain men, vaginal bleeding, weakness, fever, dyspnea, syncope, headache, dizziness, GI bleed, back pain, seizure, CVA, palpatations, mental hea lth, musculoskeletal)? @ -Differential remains broad however top considerations include Ventricular arrhythmias, atrial arrhythmias, ACS, anemia, thyrotoxicosis, electrolyte imbalance, hypokalemia, pulmonary disease, alcohol, anxiety, stress.... This is not meant to be an all-inclusive list. EKG interpreted by me (3pts min.). @ -Sinus rhythm, normal intervals, no STEMI no arrhythmia X-rays interpreted by me (1pt min.). @ -No acute process CT interpreted by me (1pt min.). @ -None done U/S interpreted by me (1pt. min.). @ -None done What testing was considered but not performed or refused? (CT, X-rays, U/S, labs)? Why? @ -None What meds were considered but not given or refused? Why? @ -None Did you discuss the management of the patient with other professionals (professionals i.e. IRENE Bagley, HALF SECTION IR[employer]ER, lab, RT, psych nurse, public health social worker, trade specialist, teacher, electoral officer, case liner)? Give summary @ -No Was smoking cessation discussed for >3mins.? @ -No Was critical care preformed (if so, how long)? @ -No Were there social determinants of health that impacted care today? How? (Homelessness, low income, unemployed, alcoholism, drug addiction, transportation, low edu. Level, literacy, decrease access to med. care, senior care, rehab)? @ -No Was there de-escalation of care discussed even if they declined (Discuss DNR or withdrawal of care, Hospice)? DNR status @ -No What co-morbidities impacted this encounter? (DM, HTN, Smoking, COPD, CAD, Cancer, CVA, ARF, Chemo, Hep., AIDS, mental health diagnosis, sleep apnea, morbid obesity)? @ -Paroxysmal A-fib Was patient admitted / discharged? Hospital course, mention meds given and route, prescriptions, significant lab abnormalities, going to OR and other pertinent info. @ -Hospital course Patient is a pleasant 58 gentleman history of paroxysmal atrial fibrillation on metoprolol and as needed flecainide. Patient presents for palpitations that began overnight last night and suspects they are triggered by being out in the heat and humidity yesterday. Palpitations are now resolved. Patient in sinus rhythm upon arrival, patient states he just feels tired now which is how he has felt in the past when he has had episodes of A-fib. Reviewed labs and imaging as ordered by triage provider. Added TSH. Will obtain repeat troponin to ensure no elevation. Labs and imaging reviewed. Grossly within normal limits. Abnormal values not concerning for acute pathology related to presenting complaint. Repeat troponin remained within normal limits. On reassessment patient symptoms have resolved. He is comfortable discharge home at this point. Request refill of his flecainide which he takes as needed if his metoprolol does not work for his palpitations. Patient ran out last night and has tried to contact his research aide's office without response, so will prescribe short refill of flecanaide. Patient comfortable plan of care and comfortable discharge at this point. In my medical judgment there is currently no evidence of an immediate life- threatening or surgical condition. Discharge is therefore indicated at this time. Discharge treatment instructions, follow up instructions, and appropriate emergency department return precautions were discussed with the patient and/or medical decision maker. Patient and/or medical decision maker expressed understanding of and agreed with the treatment plan, follow up instructions, and emergency department return precaution. All patient's and/or medical decision maker's questions were answered. The patient was advised that a small risk still exists that a serious condition could develop and was therefore instructed to return to the ED for any changes in symptoms, persistent symptoms, inability to obtain proper follow-up or for any further concerns. Patient received verbal and written instructions for this condition. At time of discharge, RN brought to my attention that patient's was concerned that the patient's blood pressure was 166/107, patient asymptomatic, showed no signs of endorgan damage on labs, heart rate 71, discussed with patient and risk of treating asymptomatic hypertension in the ED vs benefit and that treatment of patient's BP not currently indicated for these reasons. Patient requesting discharge at this time. Pt comfortable with discharge home. Undiagnosed new problem with uncertain prognosis? @ -No Drug Therapy requiring intensive monitoring for toxicity (Heparin, Nitro, Insulin, Cardizem)? @ -No Were any procedures done? @ -No Diagnosis/symptom? @ -Palpitations Acute, or Chronic, or Acute on Chronic? @ -Acute Uncomplicated (without systemic symptoms) or Complicated (systemic symptoms)? @ -Complicated Side effects of treatment? @ -No Exacerbation, Progression, or Severe Exacerbation? @ -No Poses a threat to life or bodily function? How? (Chest pain, USA, NE, pneumonia, PE, COPD, DKA, ARF, appy, cholecystitis, CVA, Diverticulitis, Homicidal, Suicidal, threat to staff... and all critical care pts) @ -No, now that rate is controlled and labs reassuring - Lab Data Result diagrams: 03/07/24 13:11 03/07/24 13:11 Lab Results 03/07/24 03/07/24 03/07/24 Range/Units 13:11 13:11 13:11 WBC 6.0 (3.8-10.6) k/uL RBC 5.42 (4.30-5.90) m/uL Hgb 17.3 (13.0-17.5) gm/dL Hct 48.8 (39.0-53.0) % MCV 90.2 (80.0-100.0) fL MCH 32.0 (25.0-35.0) pg MCHC 35.5 (31.0-37.0) g/dL RDW 12.6 (11.5-15.5) % Plt Count 347 (150-450) k/uL MPV 7.3 Neutrophils % 62 % Lymphocytes % 28 % Monocytes % 6 % Eosinophils % 2 % Basophils % 1 % Neutrophils # 3.7 (1.3-7.7) k/uL Lymphocytes # 1.7 (1.0-4.8) k/uL Monocytes # 0.4 (0-1.0) k/uL Eosinophils # 0.1 (0-0.7) k/uL Basophils # 0.0 (0-0.2) k/uL PT 11.0 (10.0-12.5) sec INR 1.0 (<1.2) APTT 22.9 (22.0-30.0) sec Sodium 140 (137-145) mmol/L Potassium 4.2 (3.5-5.1) mmol/L Chloride 109 H (98-107) mmol/L Carbon Dioxide 26 (22-30) mmol/L Anion Gap 5 mmol/L BUN 16 (9-20) mg/dL Creatinine 0.90 (0.66-1.25) mg/dL Est GFR (CKD-EPI)AfAm >90 (>60 ml/min/1.73 sqM) Est GFR (CKD-EPI)NonAf >90 (>60 ml/min/1.73 sqM) Glucose 132 H (74-99) mg/dL Calcium 9.5 (8.4-10.2) mg/dL Magnesium 2.0 (1.6-2.3) mg/dL Total Bilirubin 0.8 (0.2-1.3) mg/dL AST 23 (17-59) U/L ALT 19 (4-49) U/L Alkaline Phosphatase 72 (38-126) U/L Troponin I (0.000-0.034) ng/mL Total Protein 7.0 (6.3-8.2) g/dL Albumin 4.3 (3.5-5.0) g/dL TSH (0.465-4.680) mIU/L 03/07/24 03/07/24 03/07/24 Range/Units 13:11 16:20 16:20 WBC (3.8-10.6) k/uL RBC (4.30-5.90) m/uL Hgb (13.0-17.5) gm/dL Hct (39.0-53.0) % MCV (80.0-100.0) fL MCH (25.0-35.0) pg MCHC (31.0-37.0) g/dL RDW (11.5-15.5) % Plt Count (150-450) k/uL MPV Neutrophils % % Lymphocytes % % Monocytes % % Eosinophils % % Basophils % % Neutrophils # (1.3-7.7) k/uL Lymphocytes # (1.0-4.8) k/uL Monocytes # (0-1.0) k/uL Eosinophils # (0-0.7) k/uL Basophils # (0-0.2) k/uL PT (10.0-12.5) sec INR (<1.2) APTT (22.0-30.0) sec Sodium (137-145) mmol/L Potassium (3.5-5.1) mmol/L Chloride (98-107) mmol/L Carbon Dioxide (22-30) mmol/L Anion Gap mmol/L BUN (9-20) mg/dL Creatinine (0.66-1.25) mg/dL Est GFR (CKD-EPI)AfAm (>60 ml/min/1.73 sqM) Est GFR (CKD-EPI)NonAf (>60 ml/min/1.73 sqM) Glucose (74-99) mg/dL Calcium (8.4-10.2) mg/dL Magnesium (1.6-2.3) mg/dL Total Bilirubin (0.2-1.3) mg/dL AST (17-59) U/L ALT (4-49) U/L Alkaline Phosphatase (38-126) U/L Troponin I <0.012 <0.012 (0.000-0.034) ng/mL Total Protein (6.3-8.2) g/dL Albumin (3.5-5.0) g/dL TSH 1.290 (0.465-4.680) mIU/L Disposition Clinical Impression: Palpitations Disposition: HOME SELF-CARE Condition: Good Instructions (If sedation given, give patient instructions): Heart Palpitations (ED) Additional Instructions: Every disease is a spectrum and a small chance still exists that a serious condition could develop, for this reason, please monitor yourself closely for new, changing or worsening symptoms, return of symptoms, chest pain, difficulty in breathing, feeling like going to pass out fever, inability to tolerate/keep down fluids or your medications, inability to follow up with outpatient providers as instructed and should you experience these symptoms or should you have any further concerns for your wellbeing please return to the ED or call 911 immediately. Please follow-up with your research aide to soon as possible regarding today's visit. PLEASE call your primary care physician as soon as possible to arrange / discuss plan for followup appointment. Appointment in the next 1-3 days is strongly encouraged if possible. PLEASE let us know here before you leave if there is anything further we can do to be of any assistance. Take care and feel Better! Prescriptions: Flecainide [Tambocor] 50 mg PO Q12HR 7 Days #14 tablet Is patient prescribed a controlled substance at d/c from ED?: No Referrals: Linus Valadez MD [Primary Care Provider] - 1-2 days Time of Disposition: 17:26
[2024-03-07] MEDS: SODIUM CHLORIDE 0.9% 1,000 ML IV ONE (14:40)
[2024-03-07 19:57] VITALS: TEMP 97.9
[2024-03-07 20:47] VITALS: BP 138/100; PULSE 78; RESP 16
== END 2024-03-07 19:45 | disposition home or self-care (01) ==
LOC: EC 12:39
DX: I48.91 Unspecified atrial fibrillation
CPT/HCPCS: 36415; 71046; 80053; 83735; 84443; 84484; 85025; 85610; 85730; 93005; 96360; 99285

== ENCOUNTER → 2024-10-16 | Outpatient (CLI) | payer BC ==
--- NOTE | 2024-10-16 16:31 | US ---
EXAMINATION TYPE: US carotid duplex BILAT DATE OF EXAM: 10/16/2024 COMPARISON: NONE CLINICAL INDICATION: Male, 58 years old with history of I48.0 PAROXYSMAL ATRIAL FIBRILLATION; A-fib, family history of cardiac disease Additional History: .... TECHNIQUE: Grayscale, color Doppler and spectral Doppler evaluation of the bilateral carotid systems and vertebral arteries. Indirect Doppler criteria was utilized. FINDINGS: EXAM MEASUREMENTS: RIGHT: Peak Systolic Velocity (PSV) cm/sec ----- Right CCA: 90.8 ----- Right ICA: 104.3 ----- Right ECA: 110.6 ICA/CCA ratio: 1.1 RIGHT: End Diastole cm/sec ----- Right CCA: 31.4 ----- Right ICA: 46.1 ----- Right ECA: 19.3 LEFT: Peak Systolic Velocity (PSV) cm/sec ----- Left CCA: 103.0 ----- Left ICA: 127.6 ----- Left ECA: 126.3 ICA/CCA ratio: 1.2 LEFT: End Diastole cm/sec ----- Left CCA: 30.5 ----- Left ICA: 42.2 ----- Left ECA: 20.2 VERTEBRALS (direction of flow): Right Vertebral: Antegrade Left Vertebral: Antegrade Rhythm: Normal VIN[employer] WELDER AND FABRICATOR NOTES: No significant stenosis seen Color Doppler imaging shows patency with blood flow throughout the carotid artery. Spectral waveforms are within normal limits. IMPRESSION: Right: No hemodynamically significant stenosis. Left: No hemodynamically significant stenosis. Criteria for Assigning % of Stenosis / Diameter reduction (Estimation based on the indirect measurements of the internal carotid artery velocities (ICA PSV). 1. Normal (no stenosis)=ICA PSV < 180 cm/s: ratio < 2.0: ICA EDV<40 cm/s. 2. Less than 50% stenosis=ICA PSV < 180 cm/s: ratio < 2.0: ICA EDV<40 cm/s. 3. 50 to 69% stenosis=ICA PSV of 180 to 230 cm/s: ration 2.0 ? 4.0: ICA EDV 40-100 cm/s. PSV 125-180 cm/sec and ICA/CCA PSV Ratio ? 2.0 is also consistent with 50-69% stenosis 4. Greater than 70% stenosis to near occlusion= ICA PSV > 230 cm/s: ratio > 4.0: ICA EDV > 100 cm/s. 5. Near occlusion= ICA PSV velocities may be low or undetectable: variable ratio and ICA EDV. 6. Total occlusion=unable to detect flow. [facility], , 10/16/2024 4:29 PM
--- NOTE | 2024-10-17 11:04 | CA ---
Transthoracic Echo Report Name: Khai Quinones Age: 58 Gender: M : 1965 Exam Date: 10/16/2024 16:29 Exam Location: [facility] Ht (in): 67 Wt (lb): 185 Ordering Physician: Linus Valadez MD Attending/Referring Phys: Linus Valadez MD Building Principal Jessica Caceres, RDLEANNE Procedure CPT: Indications: I48.0 PAROXYSMAL ATRIAL FIBRILLATION Cardiac Hx: Technical Quality: Good Contrast 1: Total Dose (mL): Contrast 2: Total Dose (mL): MEASUREMENTS (Male / Female) Normal Values 2D ECHO LV Diastolic Diameter PLAX 4.3 cm 4.2 - 5.9 / 3.9 - 5.3 cm LV Systolic Diameter PLAX 2.8 cm IVS Diastolic Thickness 1.1 cm 0.6 - 1.0 / 0.6 - 0.9 cm LVPW Diastolic Thickness 1.1 cm 0.6 - 1.0 / 0.6 - 0.9 cm LV Relative Wall Thickness 0.5 RV Internal Dim ED PLAX 3.4 cm LA Systolic Diameter LX 3.4 cm 3.0 - 4.0 / 2.7 - 3.8 cm LV Diastolic Volume MOD BP 101.5 cm??? 67 - 155 / 56 - 104 cm??? LV Systolic Volume MOD BP 44.7 cm??? 22 - 58 / 19 - 49 cm??? LV Ejection Fraction MOD BP 56.0 % >= 55 % LV Cardiac Index MOD BP 2255.9 cm???/min???m??? LV Diastolic Volume MOD 4C 97.6 cm??? LV Systolic Volume MOD 4C 49.7 cm??? LV Ejection Fraction MOD 4C 49.0 % LV Cardiac Index MOD 4C 1901.9 cm???/min???m??? LV Diastolic Length 4C 7.5 cm LV Systolic Length 4C 6.3 cm LV Diastolic Volume MOD 2C 98.0 cm??? LV Systolic Volume MOD 2C 46.1 cm??? LV Ejection Fraction MOD 2C 53.0 % LV Cardiac Index MOD 2C 2063.6 cm???/min???m??? LV Diastolic Length 2C 7.9 cm LV Systolic Length 2C 6.0 cm M-MODE Aortic Root Diameter MM 3.0 cm DOPPLER AV Peak Velocity 143.5 cm/s AV Peak Gradient 8.2 mmHg Mitral E Point Velocity 72.4 cm/s Mitral A Point Velocity 90.7 cm/s Mitral E to A Ratio 0.8 MV Deceleration Time 220.4 ms MV E' Velocity 7.4 cm/s Mitral E to MV E' Ratio 9.7 TR Peak Velocity 234.9 cm/s TR Peak Gradient 22.1 mmHg Right Ventricular Systolic Press 38.0 mmHg FINDINGS Left Ventricle Left ventricular ejection fraction is estimated at 50-55 %. Left ventricular cavity size normal. Left ventricular wall thickness normal. Normal left ventricular wall motion. Right Ventricle Mild right ventricular dilatation. Mild pulmonary hypertension. Right Atrium Normal right atrial size. No right atrial thrombus or mass seen. Left Atrium Normal left atrial size. No left atrial thrombus or mass present. Mitral Valve Structurally normal mitral valve. No evidence for mitral valve prolapse. No mitral stenosis. Trace mitral regurgitation. Aortic Valve Trileaflet aortic valve. No aortic valve stenosis or regurgitation. Tricuspid Valve Structurally normal tricuspid valve. Mild tricuspid regurgitation. Pulmonic Valve Structurally normal pulmonic valve. Trace pulmonic regurgitation. Pericardium No pericardial effusion. Aorta Normal size aortic root and proximal ascending aorta. CONCLUSIONS Normal LV systolic function No significant valvular abnormalities No pericardial effusion Mild pulmonary hypertension Previewed by: Dr. Thompson Verdugo MD (Electronically Signed) Final Date: 17 October 2024 11:03
== END | disposition home or self-care (01) ==
LOC: RADUSWWP 16:05
PROVIDERS: ATTEND Internal Medicine
DX: I48.0 Paroxysmal atrial fibrillation (principal); I65.23 Occlusion and stenosis of bilateral carotid arteries; Z82.49 Family history of ischemic heart disease and other diseases of the circulatory system
CPT/HCPCS: 93306; 93880